=== PATIENT | male | born 1970 | race African-American/Black ===

== ENCOUNTER 2017-12-04 20:18 | Emergency (ER) | payer OTHER ==
[~2017-12-04] VITALS: Ht 165.1 cm; Wt 63.7 kg
--- NOTE | ~2017-12-04 | EKG ---
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 : 1970 Requested By: Dinora Granados Order Number: [id number] MD: Sanjeev Marinelli Measurements Intervals [place] Rate: 78 P: 9 LA: 198 QRS: -54 QRSD: 113 T: 94 QT: 413 QTc: 471 Interpretive Statements Sinus rhythm Probable left atrial enlargement Left anterior fascicular block LVH with secondary repolarization abnormality Probable lateral infarct, age indeterminate Compared to ECG 11/25/2017 05:26:49 Electronically Signed On 12-08-2017 17:05:47 CDT by Sanjeev Marinelli [email or web address] <ELECTRONICALLY SIGNED> By: Sanjeev Marinelli MD 12/08/17 1705 43 43 Sanjeev Marinelli MD /EPI
[~2017-12-04 20:18] MED LIST: AMLODIPINE BESY10 MG PO; ATORVASTATIN CA40 MG PO; AUGMENTIN 875-1 EACH PO; CHILDREN'S ASPI81 M1 PO; CLONIDINE0.1 PO; COREG3.125 MG PO; IMDUR 30 MG TAB30 M1 PO; LASIX 40 MG TAB40 M2 PO; LISINOPRIL10 MG PO; MINOXIDIL10 MG PO; MIRALAX17 GM PO; PERCOCET 10-321 EACH PO
[2017-12-04 21:36] LABS: ABSOLUTE NEUTROPHILS 3.3 thou/uL (1.4-8.2); EOSINOPHILS 1.4 % (0.0-3.0); HEMATOCRIT 31.2 % (42.0-52.0); HEMOGLOBIN 10.2 gm/dL (14.0-18.0); LYMPHOCYTES 11.6 % (24.0-44.0); MCH 30.6 pg (26.0-34.0); MCHC 32.8 g/dL (28.0-37.0); MCV 93.4 fL (80.0-100.0); MONOCYTES 6.9 % (1.0-8.0); PLATELET COUNT 199 thou/uL (150-400); POLYS 79.1 % (36.0-66.0); RBC 3.34 mil/uL (4.50-6.00); RDW 16.8 % (10.5-14.5); WBC 4.2 thou/uL (4.0-11.0)
[2017-12-04 21:46] LABS: CALCIUM 9.9 mg/dL (8.5-10.1); CREATININE 8.8 mg/dL (0.7-1.3); POTASSIUM 4.2 mmol/L (3.5-5.1)
[2017-12-04 21:54] LABS: ALBUMIN 3.3 g/dL (3.4-5.0); TOTAL PROTEIN 7.5 g/dL (6.4-8.2); TROPONIN-I 0.19 ng/mL (<0.06)
[2017-12-05] MEDS ORDERED: MIRALAX17 GM PO (00:46)
[2017-12-05] MEDS ORDERED: FLEET ENEMA EX230 ML RECTAL (00:48)
[2017-12-05] MEDS ORDERED: COLACE 100 MG100 MG PO (00:48)
== END 2017-12-05 01:29 | disposition home or self-care (01) ==
LOC: ER 20:18
PROVIDERS: Physician Assistant
DX: I13.2 Hypertensive heart and chronic kidney disease with heart failure and with stage 5 chronic kidney disease, or end stage renal disease (principal); I50.9 Heart failure, unspecified; N18.6 End stage renal disease; K59.00 Constipation, unspecified; R14.0 Abdominal distension (gaseous); Z99.2 Dependence on renal dialysis; F17.210 Nicotine dependence, cigarettes, uncomplicated; E78.5 Hyperlipidemia, unspecified

== ENCOUNTER 2017-12-12 11:49 | Inpatient (IN) | payer OTHER ==
[~2017-12-12] VITALS: Ht 162.6 cm; Wt 66.2 kg
--- NOTE | ~2017-12-12 | EKG ---
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 : 1970 Requested By: Armin Jimenez Order Number: [id number] MD: Sanjeev Marinelli Measurements Intervals [place] Rate: 73 P: 0 MO: 239 QRS: -50 QRSD: 117 T: 75 QT: 463 QTc: 511 Interpretive Statements Sinus rhythm Prolonged MO interval LAD, consider left anterior fascicular block Low voltage, extremity leads Nonspecific T abnrm, anterolateral leads Lead(s) aVR were not used for morphology analysis Compared to ECG 12/04/2017 20:44:37 First degree AV block now present Low QRS voltage now present Left ventricular hypertrophy no longer present Early repolarization no longer present Myocardial infarct finding no longer present Electronically Signed On 12-12-2017 23:08:59 CDT by Sanjeev Marinelli [email or web address] <ELECTRONICALLY SIGNED> By: Sanjeev Marinelli MD 12/12/17 2308 1142 1142 Sanjeev Marinelli MD /EPI
--- NOTE | ~2017-12-12 | HC ---
[facility] [address] CONSULTATION Name: YOLANDE LEDBETTER Room #: 357-P [facility] IN M.R.#: [id number] Admission: 12/12/17 Attend Phys: Bret Lott MD Discharge: 12/14/17 Date of : 74 Report #: [id number] THIS REPORT FOR: //name// CC: Bret Paredes REASON FOR CONSULTATION: End-stage renal disease. REASON FOR PRESENTATION: Mental status changes. HISTORY OF PRESENT ILLNESS: A well-known patient to me. He has an advanced cardiomyopathy with an ejection fraction of around 20%. He dialyzes with another group. He was brought by his family because of altered mental status per the family. The patient is not able to elaborate more; however, he described that he was feeling drowsy. He also felt somewhat weak. Because of the symptoms his family called 911. He missed his dialysis. I am being consulted to manage his end-stage renal disease and he had issues with hyperkalemia on his presentation. PAST MEDICAL HISTORY: 1. Terminal cardiomyopathy. 2. End-stage renal disease. 3. Hypertension. 4. Left AV fistula. 5. Recurrent admission for pulmonary edema. 6. Hyperlipidemia. 7. Cardiomyopathy. SOCIAL HISTORY: Lives with his family. Denies alcohol abuse. REVIEW OF SYSTEMS: GENERAL: No fever or chills. CARDIOVASCULAR: As per the history of present illness. PULMONARY: No cough or hemoptysis. NEUROLOGICAL: Weakness, dizziness, headache. GASTROINTESTINAL: No nausea or vomiting. GENITOURINARY: Little urine. MUSCULOSKELETAL: No back pain, no morning stiffness. FAMILY HISTORY: Significant for hypertension. MEDICATIONS: 1. Atorvastatin. 2. Carvedilol. 3. Lisinopril. 4. Aspirin. [facility] [address] [place] [address] CONSULTATION Name: YOLANDE LEDBETTER Room #: 357-P [facility] IN ..#: [id number] Admission: 12/12/17 Attend Phys: Bret Lott MD Discharge: 12/14/17 Date of : 74 Report #: [id number] PHYSICAL EXAMINATION: GENERAL: Alert, oriented. VITAL SIGNS: Blood pressure is 127/96, temperature 36.4, pulse rate 73. HEAD AND NECK: Elevated jugular venous pressure. CHEST: Bilateral crackles. CARDIOVASCULAR: S3 gallop. ABDOMEN: Soft, nontender. LOWER EXTREMITIES: Amputee on the left side. LABORATORY DATA: Reviewed. Hemoglobin 11.3. Sodium 133, potassium 6.1, chloride 97, BUN 75, creatinine 10.6. ASSESSMENT, IMPRESSION AND PLAN: 1. End-stage renal disease. 2. Hyperkalemia. 3. Terminal cardiomyopathy. 4. Noncompliance with medical treatment. 5. The patient received an emergent treatment yesterday. We will arrange for the patient to have another treatment today. 6. Continue with his heart failure medication. 7. Mental status seems to be back to his baseline. 8. Okay to discharge home tomorrow. <ELECTRONICALLY SIGNED> By: Christina Gann MD 12/27/17 0557 0845 1159 Christina Gann MD /nt
[~2017-12-12 11:49] MED LIST changes: +COLACE 100 MG100 MG PO; +FLEET ENEMA EX230 ML RECTAL
[2017-12-12 11:51] VITALS: BP 122/87
[2017-12-12 12:12] LABS: URINE BLOOD 3+ (Negative); URINE CLARITY CLOUDY; URINE COLOR RED; URINE GLUCOSE-RANDOM* NEGATIVE (Negative); URINE KETONES TRACE (Negative); URINE PROTEIN (DIPSTICK) 3+ (Negative)
[2017-12-12 12:21] LABS: ICTOTEST (BILI CONFIRMATORY) Negative (Negative); URINE BILIRUBIN NEGATIVE (Negative); URINE LEUKOCYTES-REFLEX 3+ (Negative); URINE NITRITE-REFLEX POSITIVE (Negative)
[2017-12-12 12:35] LABS: BACTERIA-REFLEX 1-9 Few /HPF (None Seen); CASTS None Seen /LPF (None Seen); CRYSTALS None Seen /LPF (None Seen); SQUAMOUS None Seen /LPF (0-3); URINE RBC >20 Many /HPF (0-2)
[2017-12-12 13:33] LABS: HEMATOCRIT 38.1 % (42.0-52.0); HEMOGLOBIN 12.8 gm/dL (14.0-18.0); MCH 30.9 pg (26.0-34.0); MCHC 33.6 g/dL (28.0-37.0); PLATELET COUNT 177 thou/uL (150-400); RBC 4.14 mil/uL (4.50-6.00); RDW 17.6 % (10.5-14.5); WBC 4.3 thou/uL (4.0-11.0)
[2017-12-12 13:42] LABS: CALCIUM 9.9 mg/dL (8.5-10.1); CREATININE 10.6 mg/dL (0.7-1.3)
[2017-12-12 13:51] LABS: TROPONIN-I 0.09 ng/mL (<0.06)
[2017-12-12 13:53] LABS: POTASSIUM 6.1 mmol/L (3.5-5.1)
[2017-12-12 13:59] LABS: ABSOLUTE NEUTROPHILS 2.6 thou/uL (1.4-8.2); PLATELET ESTIMATE NORMAL
[2017-12-12 16:02] VITALS: BP 122/87
[2017-12-12 16:25] VITALS: BP 122/87
[2017-12-12 16:36] LABS: AMP/METHAMP Negative (Negative); BARBITURATES Negative (Negative); BENZODIAZEPINES Negative (Negative); COCAINE Negative (Negative); METHADONE Negative (Negative); OPIATES Negative (Negative); PCP Negative (Negative)
[2017-12-12 17:24] VITALS: BP 136/93
[2017-12-12 19:50] VITALS: BP 140/88
[2017-12-13 00:15] VITALS: BP 131/90
[2017-12-13 05:00] VITALS: BP 139/98
[2017-12-13 05:30] VITALS: BP 127/96
[2017-12-13 06:06] LABS: HEMATOCRIT 33.4 % (42.0-52.0); HEMOGLOBIN 11.3 gm/dL (14.0-18.0); MCH 30.8 pg (26.0-34.0); MCHC 33.8 g/dL (28.0-37.0); MCV 91.1 fL (80.0-100.0); RBC 3.66 mil/uL (4.50-6.00); RDW 17.2 % (10.5-14.5); WBC 3.6 thou/uL (4.0-11.0)
[2017-12-13 08:15] VITALS: BP 140/97
[2017-12-13 16:39] VITALS: BP 127/82
[2017-12-13 19:02] VITALS: BP 127/85
[2017-12-13 23:01] LABS: CALCIUM 9.1 mg/dL (8.5-10.1); MAGNESIUM 2.2 mg/dL (1.8-2.4); POTASSIUM 3.6 mmol/L (3.5-5.1)
[2017-12-13 23:02] LABS: CREATININE 4.9 mg/dL (0.7-1.3)
[2017-12-14 03:37] VITALS: BP 150/91
[2017-12-14 07:38] VITALS: BP 141/86
[2017-12-14] MEDS ORDERED: KEFLEX500 M1 PO (08:53)
[2017-12-14 09:15] VITALS: BP 141/86
== END 2017-12-14 10:23 | disposition home or self-care (01) | DRG 871 ==
LOC: ER 11:49 → EROBS 14:43 → 3W 14:43
PROVIDERS: Hospitalist; Nurse Practitioner Acute Care; Physician Assistant
PROC: 5A1D70Z Performance of Urinary Filtration, Intermittent, Less than 6 Hours Per Day (ICD-10-PCS; principal; 2017-12-13)
DX: A41.9 Sepsis, unspecified organism (principal); N18.6 End stage renal disease; N39.0 Urinary tract infection, site not specified; I42.8 Other cardiomyopathies; I13.2 Hypertensive heart and chronic kidney disease with heart failure and with stage 5 chronic kidney disease, or end stage renal disease; E87.70 Fluid overload, unspecified; E87.5 Hyperkalemia; F17.210 Nicotine dependence, cigarettes, uncomplicated; E78.5 Hyperlipidemia, unspecified; I50.9 Heart failure, unspecified; I73.9 Peripheral vascular disease, unspecified; E87.6 Hypokalemia; I16.0 Hypertensive urgency; Z82.49 Family history of ischemic heart disease and other diseases of the circulatory system; Z91.14 Patient's other noncompliance with medication regimen; Z79.899 Other long term (current) drug therapy
CPT/HCPCS: 10879; 32100

== ENCOUNTER 2017-12-23 20:45 | Inpatient (IN) | payer OTHER ==
[~2017-12-23] VITALS: Ht 165.1 cm; Wt 67.6 kg
--- NOTE | ~2017-12-23 | HC ---
[facility] [place] [address] CONSULTATION Name: YOLANDE LEDBETTER Room #: 212-P ADM IN M.R.#: [id number] Admission: 12/23/17 Attend Phys: Bret Lott MD Discharge: Date of : 74 Report #: [id number] THIS REPORT FOR: //name// CC: Bret Paredes DATE OF SERVICE: 12/24/2017 REASON FOR CONSULTATION: End-stage renal disease and congestive heart failure. HISTORY OF PRESENT ILLNESS: The patient is well known to our service from multiple recent admissions to this hospital. He is a chronic dialysis patient over the last 7 years, who also has cardiomyopathy with a low ejection fraction and recurrent bouts of congestive heart failure. He is admitted with shortness of breath and right-sided abdominal pain. Today would be his usual dialysis day. He recently changed from 2 times a week to 3 times a week dialysis treatments. PAST MEDICAL HISTORY: He has end-stage renal disease as mentioned for several years, had been seen previously by our service in this hospital over the last several months. He has severe cardiomyopathy, otherwise he is a poor historian. 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 CURRENT MEDICATIONS: As reflected in his recent discharge summary from this hospital included clonidine 0.1 mg b.i.d., amlodipine 10 mg daily, Lipitor 40 mg daily, lisinopril 20 mg daily, aspirin 81 mg daily, Imdur 30 mg daily, carvedilol 3.125 mg b.i.d., Lasix 40 mg daily and he was unfortunately also prescribed Fleet's enema as needed. SOCIAL HISTORY: Lives at home with his family. Denies cigarettes or alcohol, apparently does have a history of prior drug use and abuse including cocaine. REVIEW OF SYSTEMS: Difficult to take as the patient is falling asleep as I am trying to interview him, but he is complaining of right-sided abdominal pain, some degree of shortness of breath and orthopnea. PHYSICAL EXAMINATION: GENERAL: This is a chronically ill-appearing gentleman looking older than his stated age. SKIN: Unremarkable. SKELETAL: Left forefoot amputation, right arm fistula. HEENT: Extraocular movements are full. Vision appears to be intact. Hearing appears to be intact. Mucous membranes moist. NECK: Supple. Neck veins do not appear to be distended. CHEST: Shows crackles at the lung bases and some rhonchi. [facility] [address] [place] [address] CONSULTATION Name: YOLANDE LEDBETTER Room #: 212-P [facility] IN .R.#: [id number] Admission: 12/23/17 Attend Phys: Bret Lott MD Discharge: Date of : 74 Report #: [id number] HEART: Regular, somewhat tachycardic. ABDOMEN: Somewhat tender in the right upper quadrant. EXTREMITIES: Show no peripheral edema. LABORATORY DATA: Hemoglobin is 12. Sodium 138, potassium 3.7, chloride 98, bicarbonate 33, creatinine 6.6, BUN 23. Chest x-ray indicative of congestive heart failure. ASSESSMENT AND PLAN: 1. End-stage renal disease in need of his usual dialysis treatment. Today is his dialysis day #2. 2. Congestive heart failure, he is fluid overloaded. 3. Right upper quadrant pain, likely due to congestive hepatopathy. 4. Hypertension. 5. Severe cardiomyopathy. 6. Cognitive impairment, which I believe is chronic. DICTATION ENDS HERE. By: 1012 1552 Tito Quinones MD /nt
--- NOTE | ~2017-12-23 | EKG ---
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 : 1970 Requested By: Elsie Koenig Order Number: [id number] MD: Александр Ochoa Measurements Intervals [place] Rate: 89 P: 57 NE: 199 QRS: -52 QRSD: 118 T: 109 QT: 408 QTc: 497 Interpretive Statements Sinus rhythm Ventricular premature complex LAD, consider left anterior fascicular block LVH with secondary repolarization abnormality Compared to ECG 12/12/2017 11:42:15 Ventricular premature complex(es) now present Electronically Signed On 12-24-2017 7:30:54 CDT by Александр Ochoa [email or web address] <ELECTRONICALLY SIGNED> By: Александр Ochoa MD, FAC 12/24/17 0730 06 06 Александр Ochoa MD, [facility] /EPI
--- NOTE | ~2017-12-23 | EKG ---
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 : 1970 Requested By: Bret Lott Order Number: [id number] MD: Александр Ochoa Measurements Intervals [place] Rate: 103 P: 45 [place]: 186 QRS: -85 QRSD: 113 T: 79 QT: 360 QTc: 471 Interpretive Statements Sinus tachycardia Probable left atrial enlargement LAD, consider left anterior fascicular block LVH with secondary repolarization abnormality Probable lateral infarct, age indeterminate Compared to ECG 12/23/2017 21:07:54 Ventricular premature complex(es) no longer present Electronically Signed On 12-25-2017 8:42:49 CDT by Александр Ochoa [email or web address] <ELECTRONICALLY SIGNED> By: Александр Ochoa MD, FACC 12/25/17 0842 182 1824 Александр Ochoa MD, FAC /EPI
[~2017-12-23 20:45] MED LIST changes: +KEFLEX500 M1 PO
[2017-12-23 20:50] VITALS: BP 150/106
[2017-12-23 21:21] LABS: ABSOLUTE NEUTROPHILS 1.8 thou/uL (1.4-8.2); BASOPHILS 2.1 % (0.0-2.0); HEMATOCRIT 34.8 % (42.0-52.0); HEMOGLOBIN 11.5 gm/dL (14.0-18.0); LYMPHOCYTES 28.7 % (24.0-44.0); MCH 30.5 pg (26.0-34.0); MCV 92.6 fL (80.0-100.0); MONOCYTES 7.3 % (1.0-8.0); PLATELET COUNT 169 thou/uL (150-400); POLYS 59.9 % (36.0-66.0); RBC 3.76 mil/uL (4.50-6.00); RDW 17.4 % (10.5-14.5)
[2017-12-23 21:29] LABS: CALCIUM 10.8 mg/dL (8.5-10.1); CREATININE 6.4 mg/dL (0.7-1.3); POTASSIUM 3.4 mmol/L (3.5-5.1)
[2017-12-23 21:37] LABS: ALBUMIN 3.3 g/dL (3.4-5.0); TOTAL BILIRUBIN 1.6 mg/dL (<0.1-1.0); TOTAL PROTEIN 7.9 g/dL (6.4-8.2); TROPONIN-I 0.09 ng/mL (<0.06)
[2017-12-23 22:20] LABS: URINE BILIRUBIN NEGATIVE (Negative); URINE BLOOD TRACE (Negative); URINE CLARITY CLEAR; URINE COLOR YELLOW; URINE GLUCOSE-RANDOM* NEGATIVE (Negative); URINE KETONES NEGATIVE (Negative); URINE LEUKOCYTES-REFLEX NEGATIVE (Negative); URINE NITRITE-REFLEX NEGATIVE (Negative); URINE PROTEIN (DIPSTICK) 2+ (Negative); URINE SPECIFIC GRAVITY 1.015 (1.005-1.035)
[2017-12-23 22:33] LABS: CASTS None Seen /LPF (None Seen); CRYSTALS None Seen /LPF (None Seen); SQUAMOUS None Seen /LPF (0-3)
[2017-12-23 22:34] LABS: BACTERIA-REFLEX 1-9 Few /HPF (None Seen); URINE RBC 0-2 Rare /HPF (0-2); URINE WBC-REFLEX None Seen /HPF (0-5)
[2017-12-23 22:59] VITALS: BP 151/106
[2017-12-24] VITALS (14 sets, daily range): BP systolic 113–157; BP diastolic 74–115
[2017-12-24 03:52] LABS: HEMATOCRIT 36.5 % (42.0-52.0); MCH 30.2 pg (26.0-34.0); MCHC 32.9 g/dL (28.0-37.0); MCV 91.9 fL (80.0-100.0); RBC 3.97 mil/uL (4.50-6.00); RDW 17.7 % (10.5-14.5); WBC 3.3 thou/uL (4.0-11.0)
[2017-12-24 04:04] LABS: CALCIUM 10.7 mg/dL (8.5-10.1); CREATININE 6.6 mg/dL (0.7-1.3); POTASSIUM 3.7 mmol/L (3.5-5.1)
[2017-12-24 14:51] LABS: AMP/METHAMP Negative (Negative); BARBITURATES Negative (Negative); BENZODIAZEPINES Negative (Negative); COCAINE Negative (Negative); METHADONE Negative (Negative); OPIATES POSITIVE (Negative); PCP Negative (Negative)
[2017-12-24 18:39] LABS: BE(vivo) 6.9 mmol/L (-2 to +3); HCO3 31.2 mmol/L (22.0-26.0); PCO2 43.3 mmHg (35.0-45.0); PO2 159.2 mmHg (80.0-100.0); pH 7.476 (7.360-7.450); sO2 99.1 % (92.0-98.0)
[2017-12-25] VITALS (25 sets, daily range): BP systolic 100–131; BP diastolic 60–89
[2017-12-25 03:49] LABS: ALBUMIN 2.8 g/dL (3.4-5.0); CALCIUM 9.2 mg/dL (8.5-10.1); PHOSPHORUS 4.6 mg/dL (2.5-4.9); POTASSIUM 4.1 mmol/L (3.5-5.1)
[2017-12-25 03:50] LABS: CREATININE 5.6 mg/dL (0.7-1.3)
[2017-12-25] MEDS ORDERED: PHOSLO667 MG PO (17:06)
[2017-12-26 04:54] LABS: ABSOLUTE NEUTROPHILS 2.9 thou/uL (1.4-8.2); BASOPHILS 0.9 % (0.0-2.0); EOSINOPHILS 1.2 % (0.0-3.0); HEMATOCRIT 32.2 % (42.0-52.0); HEMOGLOBIN 10.2 gm/dL (14.0-18.0); LYMPHOCYTES 17.4 % (24.0-44.0); MCH 29.2 pg (26.0-34.0); MCHC 31.8 g/dL (28.0-37.0); MCV 91.7 fL (80.0-100.0); MONOCYTES 7.1 % (1.0-8.0); POLYS 73.4 % (36.0-66.0); RBC 3.51 mil/uL (4.50-6.00); RDW 17.2 % (10.5-14.5); WBC 3.9 thou/uL (4.0-11.0)
[2017-12-26 05:05] VITALS: BP 114/77
[2017-12-26 05:12] LABS: ALBUMIN 2.6 g/dL (3.4-5.0); CREATININE 7.3 mg/dL (0.7-1.3); PHOSPHORUS 4.9 mg/dL (2.5-4.9); POTASSIUM 4.4 mmol/L (3.5-5.1)
[2017-12-26 05:32] LABS: PLATELET COUNT 96 thou/uL (150-400)
[2017-12-26 07:23] VITALS: BP 107/70
[2017-12-26 11:19] VITALS: BP 117/77
[2017-12-26 15:31] VITALS: BP 117/77
[2017-12-26 15:40] VITALS: BP 131/85
== END 2017-12-26 18:11 | disposition home or self-care (01) | DRG 291 ==
LOC: ER 20:45 → 2N 22:46 → EROBS 22:46 → 2N 23:39 → ICU 12-24 19:43 → 2N 12-25 16:04 → ENTRNSPT 12-26 18:06 → 2N 12-26 18:11
PROVIDERS: Hospitalist; Internal Medicine Nephrology; Nurse Practitioner Family; Nurse Practitioner Gerontology; Physician Assistant
DX: I13.2 Hypertensive heart and chronic kidney disease with heart failure and with stage 5 chronic kidney disease, or end stage renal disease (principal); N18.6 End stage renal disease; J96.01 Acute respiratory failure with hypoxia; I50.43 Acute on chronic combined systolic (congestive) and diastolic (congestive) heart failure; I42.9 Cardiomyopathy, unspecified; J44.9 Chronic obstructive pulmonary disease, unspecified; F17.210 Nicotine dependence, cigarettes, uncomplicated; E87.70 Fluid overload, unspecified; G31.84 Mild cognitive impairment of uncertain or unknown etiology; I73.9 Peripheral vascular disease, unspecified; I27.20 Pulmonary hypertension, unspecified; E78.5 Hyperlipidemia, unspecified; I05.9 Rheumatic mitral valve disease, unspecified; I07.1 Rheumatic tricuspid insufficiency; F14.10 Cocaine abuse, uncomplicated; K59.00 Constipation, unspecified; Z89.432 Acquired absence of left foot; Z91.14 Patient's other noncompliance with medication regimen; Z79.899 Other long term (current) drug therapy
CPT/HCPCS: 10078; 10081; 32100

== ENCOUNTER → 2018-02-17 | Outpatient (CLI) | payer OTHER ==
[~2018-02-17] MED LIST changes: +CARVEDILOL12.5 MG PO; +COLACE100 MG PO; +HYDROXYZINE HCL25 M1 PO; +PHOSLO667 MG PO
== END ==
LOC: ULTRA 07:40
DX: N26.1 Atrophy of kidney (terminal) (principal); K76.9 Liver disease, unspecified; R18.8 Other ascites

== ENCOUNTER → 2018-02-19 | Outpatient (CLI) | payer OTHER ==
[~2018-02-19] VITALS: Ht 165.1 cm; Wt 64.0 kg
--- NOTE | ~2018-02-19 | P ---
[facility] [place] [address] PROCEDURE REPORT Name: YOLANDE LEDBETTER Room #: REG [facility]#: [id number] Admission: 02/19/18 Attend Phys: Moise Lantigua MD Discharge: Date of : 74 Report #: [id number] THIS REPORT FOR: //name// CC: Rogelio Fowler MD DATE OF SERVICE: 02/19/2018 BRIEF HISTORY: The patient is a 47-year-old male with recent change in bowel habits. He also has had occasional blood seen on his stools, rectal bleeding. PREOPERATIVE DIAGNOSES: Change in bowel habits, rectal bleeding. POSTOPERATIVE DIAGNOSES: 1. Diminutive proximal ascending colon polyp. 2. Mild diverticulosis coli, primarily sigmoid colon. MEDICATIONS: Deep sedation with propofol per Anesthesia. SPECIMEN: Cecal polyp. ESTIMATED BLOOD LOSS: 3 mL. PROCEDURE: Colonoscopy to cecum and ileocecal valve with biopsy. FINDINGS: Prior to propofol sedation, procedure of colonoscopy discussed with the patient as well as potential risks and its complications. He indicates he understands and desires to proceed. DESCRIPTION OF PROCEDURE: With the patient in left lateral decubitus position, digital examination was completed, which revealed no abnormalities. Subsequently, the Olympus video colonoscope was introduced in the rectum and advanced under direct vision to the cecum. Done with minimal difficulty. The cecum was identified by the ileocecal valve and the appendiceal orifice. I was able to visualize the distal segment of the terminal ileum, which was inspected and noted to be unremarkable. At that point, the scope was slowly withdrawn and careful circumferential views obtained including retroflexion of the scope in the ascending colon. Upon slow withdrawal of the scope, the prep was noted to be good. The mucosa was within normal limits, normal vascular pattern, normal light reflex. As we withdrew the scope, a diminutive polyp was seen and removed by biopsy from the proximal ascending colon. Otherwise, no neoplastic lesions were seen during this examination. An occasional diverticulum was noted upon slow withdrawal of the scope. There was no endoscopic evidence of [facility] [address] [place] [address] PROCEDURE REPORT Name: ANATOLYYOLANDE K Room #: REG [facility]#: [id number] Admission: 02/19/18 Attend Phys: Moise Lantigua MD Discharge: Date of : 74 Report #: [id number] diverticulitis. Scope was withdrawn in the rectum. No abnormalities were seen. Upon retroflexion, no abnormalities were noted. The scope was withdrawn. The patient tolerated the procedure well. CONDITION OF THE PATIENT UPON DISCHARGE: Following the procedure, the patient drowsy, arousable and conversant and will be discharged home when fully ambulatory. INSTRUCTIONS TO THE PATIENT AND FAMILY AT THE TIME OF DISCHARGE: One small polyp identified and removed as described above. We will follow up on the pathology and make further recommendations. If it is adenomatous, he will return for colonoscopy in 5 years; if not adenomatous in 10 years. The patient has had change in bowel habits, increasing problems with constipation. He was given Linzess samples in the office and notes that he now has diarrhea. We will reduce his dose from 145 to 72 mcg daily and then have him return for followup in the office. Withdrawal time from cecum was 17 minutes 46 seconds. <ELECTRONICALLY SIGNED> By: Moise Lantigua MD 02/21/18 1030 1019 1034 Moise Lantigua MD /nt
--- NOTE | ~2018-02-19 | PATH ---
[facility] [address] [place] [address] PATHOLOGY RPT PROCEDURE Name: TYSON LEDBETTER Room #: REG COREY Jihan.#: [id number] Admission: 02/19/18 Date of : 74 Discharge: Report #: [id number] Path Case #: [id number] [facility] Accession Number: [id number] . 01 Material submitted: . PART A: BX OF GASTRITIS R/O H. PYLORI PART B: POLYP AT PROXIMAL ASCENDING COLON . 01 Clinical history: . Pre-OP DX: Change in bowel habits, dyspepsia, dysphagia Post-OP DX: Gastritis, esophageal varices, colon polyp, diverticulosis . 02 Diagnosis: A. Gastric mucosa, gastritis R/O H. pylori, endoscopic biopsy: - Mild reactive gastropathy. - Negative for intestinal metaplasia or atrophy. - Negative for Helicobacter pylori (properly controlled immunohistochemical stain performed). . B. Polyp, proximal ascending colon, endoscopic biopsy: - Tubular adenoma. - Negative for high-grade dysplasia. (IUV:nayely; 02/20/2018) QMS/02/20/2018 . 02 Electronically signed: . Edna Ponce MD, Pathologist NPI- [id number] . 01 Gross description: . A. Received in formalin labeled "Tyson Ledbetter, BX of gastritis," are 5 segments of haro soft tissue measuring 1.5 x 0.9 x 0.3 cm in aggregate dimensions and ranging from 0.3 to 0.7 cm in maximum dimension. The specimen is submitted entirely in cassette A1. . B. Received in formalin labeled "Tyson Ledbetter, polyp at proximal ascending colon," are 5 segments of haro soft tissue measuring 1.4 x 0.6 x 0.2 cm in aggregate dimensions and ranging from 0.3 to 0.4 cm in maximum dimension. The specimen is submitted entirely in cassette B1. (TSD; 02/19/2018) TOB/TOB . 02 Pathologist provided ICD-10: K31.9, D12.2 . 02 CPT . 971322, 640984, C98124 [place] [address] PATHOLOGY RPT PROCEDURE Name: RAVINDER LEDBETTERT Room #: REG CL Yolanda#: [id number] Admission: 02/19/18 Date of : 74 Discharge: Report #: [id number] Path Case #: [id number] Specimen Comment: A courtesy copy of this report has been sent to Specimen Comment: [phone], . Specimen Comment: Report sent to / DR STANTON Performed at: [address], [place] [id number] MD El Cruz MD Phone: [phone] Performed at: [address] [id number] MD Edna Ponce MD Phone: [phone]
--- NOTE | ~2018-02-19 | P ---
[facility] [place] [address] PROCEDURE REPORT Name: YOLANDE LEDBETTER Room #: REG [facility]#: [id number] Admission: 02/19/18 Attend Phys: Moise Lantigua MD Discharge: Date of : 74 Report #: [id number] THIS REPORT FOR: //name// CC: DR TREVIN Lantigua BRIEF HISTORY: The patient is a 47-year-old male who is seen in the office recently. He has heart disease, chronic kidney disease, pulmonary hypertension and also he has had abdominal pain, reflux type symptoms and intermittent solid food dysphagia. POSTOPERATIVE DIAGNOSES: 1. Grade 1, early esophageal varix. 2. Diffuse gastritis. 3. Dysphagia. MEDICATIONS: Deep sedation with propofol per Anesthesia. SPECIMEN: Biopsies of gastritis. ESTIMATED BLOOD LOSS: 3 mL. PROCEDURE: EGD with biopsy and Parikh dilation. FINDINGS: Prior to propofol sedation, procedure of upper endoscopy was reviewed with the patient as well as potential risks and its complications. He indicates he understands and desires to proceed. DESCRIPTION OF PROCEDURE: With the patient in left lateral decubitus position, the Olympus video endoscope was inserted in the cervical esophagus under direct vision without difficulty. Examination of this organ to its entire length revealed normal esophageal mucosa in the proximal esophagus. As the scope was advanced distally, the mucosa was intact and normal without evidence of ulcers, erosions or esophagitis. However, in the distal esophagus, he did have one very early no more than grade 1 esophageal varix. It was barely distinguishable from the surrounding mucosa. There was no stigmata of bleeding. The squamocolumnar junction was unremarkable. He may have a small 1-2 cm sliding hiatus hernia, but a large hernia was not seen. As far as her dysphagia, I did not see any evidence of strictures or mass lesions. Scope was advanced in the stomach, was examined on end view as well as retroflexed views. He had a pattern of diffuse gastritis with scattered erosions in the antrum. No ulcers were seen. No bleeding lesions were seen. There was a diffuse gastritis throughout. Upon retroflexion, no mass lesions were seen in the cardia. In addition, with his bloating and fullness symptoms, I did not see retained solids or liquids in the stomach. Biopsies obtained of the gastritis. The pylorus and duodenal bulb [address] [address] PROCEDURE REPORT Name: YOLANDE LEDBETTER Room #: REG CORE[facility] Guerrero#: [id number] Admission: 02/19/18 Attend Phys: Moise Lantigua MD Discharge: Date of : 74 Report #: [id number] were inspected and noted to be unremarkable. At that point, the scope was slowly withdrawn and careful circumferential views confirmed the above findings. The patient tolerated the procedure well. Following the procedure, he was dilated with passage of 50-Kiswahili Parikh dilator due to symptoms of dysphagia, although the specific lesion was not seen. After dilation, the endoscope was reinserted and no mucosal injuries were seen related to the dilation. CONDITION OF THE PATIENT UPON DISCHARGE: Following procedure, the patient was drowsy. He was then prepared for colonoscopy. . INSTRUCTIONS TO THE PATIENT AND FAMILY AT THE TIME OF DISCHARGE: We will have him start PPI such as omeprazole 20 mg daily. If he has resolved with the dilation, he can return for dilation on an as needed basis as long as he does not have large varices. We will have him return to see me in followup in the office. Consider gastric emptying study if symptoms persist. Proceed with colonoscopy at this time. <ELECTRONICALLY SIGNED> By: Moise Lantigua MD 02/21/18 1030 0944 1041 Moise Lantigua MD /nt
== END | disposition home or self-care (01) ==
LOC: GI 06:58
DX: D12.2 Benign neoplasm of ascending colon (principal); K57.30 Diverticulosis of large intestine without perforation or abscess without bleeding; K31.9 Disease of stomach and duodenum, unspecified; K29.70 Gastritis, unspecified, without bleeding; I85.00 Esophageal varices without bleeding; K21.9 Gastro-esophageal reflux disease without esophagitis; I13.0 Hypertensive heart and chronic kidney disease with heart failure and stage 1 through stage 4 chronic kidney disease, or unspecified chronic kidney disease; N18.6 End stage renal disease; I50.9 Heart failure, unspecified; D64.9 Anemia, unspecified; I42.9 Cardiomyopathy, unspecified; E78.00 Pure hypercholesterolemia, unspecified; J43.9 Emphysema, unspecified; R14.0 Abdominal distension (gaseous); Z79.899 Other long term (current) drug therapy; Z99.2 Dependence on renal dialysis; Z87.891 Personal history of nicotine dependence; Z79.82 Long term (current) use of aspirin; Z98.890 Other specified postprocedural states
CPT/HCPCS: 62110; 62900

== ENCOUNTER → 2018-07-15 | Outpatient (CLI) | payer OTHER ==
--- NOTE | 2018-07-15 13:36 | 2DMMODE ---
[facility] [address] [place] [address] 2 D/M-MODE ECHOCARDIOGRAM Name: YOLANDE LEDBETTER Room #: REG CL [facility]#: [id number] ������������� Admission: 07/15/18 ������������� Attend Phys: Rogelio Espinoza Discharge: ��� ������������� ��� Date of : 74 Date of Service: 07/15/18 1336 �� Report #: [id number] �������� ��������������������������������������������[id number] THIS REPORT FOR: //name// APPROVED REPORT Study performed: 07/15/2018 13:07:14 EXAM: Limited 2D, Doppler, and color-flow Echocardiogram Patient Location: Out-Patient Status: routine BSA: 1.80 HR: 69 bpm BP: 130/82 mmHg Rhythm: NSR Other Information Study Quality: Good Indications Abbreviated echo for cardiomyopathy, LV function. (EF 20% in 11/2017) 2D Dimensions RVDd: 37.99 mm Volumes Left Atrial Volume (Systole) Single Plane 4CH: 50.61 mL Single Plane 2CH: 55.49 mL LA ESV Index: 32.00 mL/m2 Aortic Valve AoV Peak Josafat.: 1.59 m/s AO Peak Gr.: 10.08 mmHg Tricuspid Valve TR Peak Josafat.: 2.55 m/s RAP Estimate: 5.00 mmHg TR Peak Gr.: 26.05 mmHg PA Pressure: 29.00 mmHg Left Ventricle Left ventricle is grossly normal size. Moderate concentric left ventricular hypertrophy. Left ventricular systolic function is moderately decreased. LVEF is 35%. Right Ventricle [facility] [address] [place] [address] 2 D/M-MODE ECHOCARDIOGRAM Name: YOLANDE LEDBETTER [id number] ������������� Admission: 07/15/18 ������������� Attend Phys: Rogelio Espinoza Discharge: ��� ������������� ��� Date of : 74 Date of Service: 07/15/18 1336 �� Report #: [id number] �������� ��������������������������������������������[id number] The right ventricle is normal size. Right ventricle is mildly hypokinetic. Atria The left atrium size is normal. The right atrium size is normal. Aortic Valve Aortic valve is trileaflet. No aortic regurgitation is present. There is no aortic valvular stenosis. Mitral Valve The mitral valve is normal in structure. Trace mitral regurgitation. Tricuspid Valve The tricuspid valve is normal in structure. Trace to mild tricuspid regurgitation. Estimated PAP is 30mmHg. Great Vessels IVC is normal in size and collapses >50% with inspiration. Pericardium There is no pericardial effusion. <Conclusion> Left ventricle is grossly normal size. Moderate concentric left ventricular hypertrophy. LVEF is 35%. Aortic valve is trileaflet. The mitral valve is normal in structure. Trace mitral regurgitation. The tricuspid valve is normal in structure. Trace to mild tricuspid regurgitation. Estimated PAP is 30mmHg. There is no pericardial effusion. ��������������������������������������������� <ELECTRONICALLY SIGNED> ���������������������������������������� By: Rogelio Orourke MD ��������������������������������������������� 07/15/18 1336 35 Rogelio Orourke MD /INF
== END ==
LOC: CV 06:27
DX: I07.1 Rheumatic tricuspid insufficiency (principal); I42.9 Cardiomyopathy, unspecified

== ENCOUNTER 2018-10-12 00:03 | Inpatient (IN) | payer OTHER ==
[2018-10-12] VITALS (7 sets, daily range): BP systolic 112–195; BP diastolic 67–126
[~2018-10-12] VITALS: Ht 167.6 cm; Wt 65.8 kg
--- NOTE | ~2018-10-12 | HC ---
[facility] [place] [address] CONSULTATION Name: YOLANDE LEDBETTER Room #: 203-P ADM IN M.R.#: [id number] Admission: 10/12/18 ������������������ Attend Phys: Francesca Thompson Discharge: ������������������ Date of : 74 Report #: [id number] THIS REPORT FOR: //name// CC: Nolan Thompson DATE OF SERVICE: 10/12/2018 REASON FOR CONSULTATION: End-stage renal disease. REASON FOR PRESENTATION: Found down. HISTORY OF PRESENT ILLNESS: Unfortunately, the patient is having mental status issue and is not able to communicate with us. He has history of polysubstance abuse. He is positive for cocaine and PCP on his screen. He is known to have end-stage renal disease and maintained on hemodialysis in another facility with another group. He is also known to have advanced cardiomyopathy with noncompliance of medical care. He was brought by the EMS after he was found sitting in his yard alone by himself. Further details of the history are not available. His mental status issues had persisted ever since his presentation to the Emergency Room. A consult was placed for me to manage his dialysis. He was extremely hypertensive on his presentation. PAST MEDICAL HISTORY: 1. End-stage renal disease, maintained on hemodialysis. 2. Severe cardiomyopathy with an ejection fraction of around 30%. 3. Pulmonary hypertension. 4. Noncompliance. 5. Severe mitral regurgitation. 6. Severe tricuspid regurgitation. 7. Polysubstance abuse. 8. Status post left metatarsal amputation. 9. Right knee surgery. MEDICATIONS: Listed amongst his medications: 1. Clonidine. 2. Amlodipine. 3. Lisinopril. 4. Carvedilol. 5. Atorvastatin. ALLERGIES: None. SOCIAL HISTORY: Polysubstance abuse. REVIEW OF SYSTEMS: Unobtainable given the patient's mental status. [facility] [address] [place] [address] CONSULTATION Name: YOLANDE LEDBETTER Room #: 203-[facility].#: [id number] Admission: 10/12/18 ������������������ Attend Phys: Francesca Thompson Discharge: ������������������ Date of : 74 Report #: [id number] FAMILY HISTORY: Unobtainable given the patient's mental status. PHYSICAL EXAMINATION: GENERAL: He is confused, lethargic. VITAL SIGNS: Temperature 37.8, blood pressure 195/126, pulse rate 107, respiratory rate 20. HEAD AND NECK: Elevated jugular venous pressure. CHEST: Bilateral crackles. CARDIOVASCULAR: Systolic murmur present. ABDOMEN: Soft, nontender. EXTREMITIES: Lower extremities, left TMA. Upper extremities, right huge AV fistula. LABORATORY DATA: Reviewed. Sodium 141, BUN 69, creatinine is 10. Toxicology, as I have stated, positive for PCP and cocaine. Head CT with no acute abnormality. Chest x-ray with mild pulmonary congestion. ASSESSMENT, IMPRESSION AND PLAN: 1. Hypertensive urgency. 1. End-stage renal disease. 2. Pulmonary edema. 3. Polysubstance abuse. 4. Advanced cardiomyopathy. 5. We will arrange for the patient to have his usual hemodialysis every Friday, Friday and Friday. 6. Blood pressure control. 7. Cardiology following for his elevated troponin. 8. Extreme noncompliance was addressed with the patient on numerous times. 9. We will continue to follow along. ��������������������������������������������� ���������������������������������������� By: ��������������������������������������������� 0853 0149 Christina Gann MD /nt
[~2018-10-12 00:03] MED LIST changes: +LISINOPRIL20 MG PO; +NORVASC10 MG PO
[2018-10-12 01:13] LABS: URINE BILIRUBIN NEGATIVE (Negative); URINE BLOOD 1+ (Negative); URINE CLARITY CLEAR; URINE COLOR YELLOW; URINE GLUCOSE-RANDOM* NEGATIVE (Negative); URINE KETONES NEGATIVE (Negative); URINE LEUKOCYTES-REFLEX NEGATIVE (Negative); URINE NITRITE-REFLEX NEGATIVE (Negative); URINE PROTEIN (DIPSTICK) 3+ (Negative)
[2018-10-12 01:13] LABS: ABSOLUTE NEUTROPHILS 3.8 thou/uL (1.4-8.2); BASOPHILS 0.9 % (0.0-2.0); EOSINOPHILS 1.3 % (0.0-3.0); HEMATOCRIT 35.9 % (42.0-52.0); HEMOGLOBIN 12.1 gm/dL (14.0-18.0); LYMPHOCYTES 13.3 % (24.0-44.0); MCH 31.4 pg (26.0-34.0); MCHC 33.6 g/dL (28.0-37.0); MCV 93.6 fL (80.0-100.0); MONOCYTES 8.5 % (1.0-8.0); PLATELET COUNT 185 thou/uL (150-400); RBC 3.84 mil/uL (4.50-6.00); RDW 13.5 % (10.5-14.5)
[2018-10-12 01:19] LABS: AMP/METHAMP Negative (Negative); BARBITURATES Negative (Negative); BENZODIAZEPINES Negative (Negative); COCAINE POSITIVE (Negative); METHADONE Negative (Negative); OPIATES Negative (Negative); PCP POSITIVE (Negative)
[2018-10-12 01:19] LABS: CALCIUM 8.5 mg/dL (8.5-10.1); POTASSIUM 4.5 mmol/L (3.5-5.1)
[2018-10-12 01:26] LABS: BACTERIA-REFLEX None Seen /HPF (None Seen); CASTS None Seen /LPF (None Seen); CRYSTALS None Seen /LPF (None Seen); MUCUS None Seen strn/LPF (None Seen); SQUAMOUS None Seen /LPF (0-3); URINE RBC 0-2 Rare /HPF (0-2); URINE WBC-REFLEX None Seen /HPF (0-5)
[2018-10-12 01:28] LABS: TROPONIN-I 0.36 ng/mL (<0.06)
--- NOTE | 2018-10-12 09:25 | NUR ---
Pt becoming increasingly agitated at this time after moving from ER1 to ER17. Pt standing on bed, naked, pulling his IV out. Pt shouting at wait staff. Security notified. notified, RX orders given [Haldol 1mg q6h + Ativan 1mg q4h PRN]. Pt to be moved to ER15 to remain in direct line of sight of RN station.
--- NOTE | 2018-10-12 17:29 | NUR ---
Pt sleeping on dialysis at this time; unwilling to eat. Coreg held until pt awake.
--- NOTE | 2018-10-12 18:05 | NUR ---
PT BECAME EXCESSIVELY AGITATED AT THIS TIME, ATTEMPTING TO STAND ON BED WHILE UNDERGOING DIALYSIS. PRN RX GIVEN
--- NOTE | 2018-10-12 21:11 | NUR ---
1942 PT ARRIVED FROM ED, STABLE CONDITION, CURRENTLY SLEEPING. WILL ADMIT PT AND CARRY OUT ORDERS.
[2018-10-12] MEDS ORDERED: HYDROXYZINE HCL25 M1 PO (21:21)
[2018-10-12] MEDS ORDERED: LINZESS72 MCG PO (21:23)
[2018-10-12] MEDS ORDERED: RENAGEL800 MG PO (21:30)
[2018-10-12] MEDS ORDERED: TRAZODONE HCL50 MG PO (21:31)
[2018-10-12] MEDS ORDERED: OMEPRAZOLE20 M2 PO (21:31)
--- NOTE | 2018-10-12 22:07 | NUR ---
PT CURRENTLY UNABLE TO SIGN CONSENT REGARDING TELE INTERFERENCE D/T DROWSINESS BUT DISCUSSED IT WITH PT AND WILL HAVE HIM SIGN SOON HE WAKES UP MORE.
[2018-10-13 00:42] VITALS: BP 112/62
[2018-10-13 04:16] VITALS: BP 138/8
--- NOTE | 2018-10-13 05:26 | NUR ---
PT MORE ALERT AND ABLE TO ANSWER QUESTIONS APPROPRIATELY. PT REMAINS ON RA. SR ON MONITOR. PT ABLE TO SIGN CONSENT FOR TELEMETRY INTERFERENCE ACKNOWLEDGMENT.
--- NOTE | 2018-10-13 07:55 | EKG ---
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 ��������������������������������������������� <ELECTRONICALLY SIGNED> ���������������������������������������� By: Александр Ochoa MD, [facility] ��������������������������������������������� 10/13/18 0754 0036 0036 Александр Ochoa MD, FAC /EPI
--- NOTE | 2018-10-13 07:57 | EKG ---
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1970 Requested By: Ralph Holbrook Order Number: [id number] MD: Александр Ochoa Measurements Intervals [place] Rate: 102 P: 60 OR: 172 QRS: -49 QRSD: 112 T: 75 QT: 380 QTc: 496 Interpretive Statements Sinus tachycardia Ventricular premature complex Probable left atrial enlargement Left anterior fascicular block Poor R wave progression Cannot rule out high lateral infarct, age indeterminate ST elevation, probable early repolarization pattern Borderline prolonged QT interval Compared to ECG 12/24/2017 18:24:00 Ventricular premature complex(es) now present Electronically Signed On 10-13-2018 7:57:01 CDT by Александр Ochoa [email or web address] ��������������������������������������������� <ELECTRONICALLY SIGNED> ���������������������������������������� By: Александр Ochoa MD, FAC ��������������������������������������������� 10/13/18 0757 6 6 Александр Ochoa MD, [facility] /EPI
[2018-10-13 08:50] VITALS: BP 128/69
--- NOTE | 2018-10-13 11:04 | NUR ---
RD consult received for renal diet education. Pt with hx ESRD/dialysis, admitted with altered mental status, +cocaine/PCP, CHF. Medical noncompliance. Attempted visit, pt sleeping with head at opposite end of bed. Wt hx reviewed and appears stable around 150 lb. Will follow up again in few days when pt more alert to determine any dietary education needs and intake/appetite status.
[2018-10-13 12:09] VITALS: BP 96/69
[2018-10-13 16:48] VITALS: BP 115/64
--- NOTE | 2018-10-13 17:45 | NUR ---
PT CARE ASSUMED APPROX 0700. PT DROWSY MOST OF SHIFT AND ORIENTED TO PERSON ONLY. ORIENTED TO PLACE ONCE THIS SHIFT. AT THIS TIME PT IS ALERT BUT STILL CONFUSED. CALM AND BEAHVIORS ARE APPROPRIATE. ATIVAN MANAGING BEHAVIOR THIS SHIFT. HALDOL DC'D DUE PROLONGED QTI. PT DENIES CHEST PAIN OR GENERAL PAIN. DENIES SOA. VSS. APPETITE GOOD. GAIT UNASSESSED. PT HAS NOT MADE ANY ATTEMPTS TO GET OOB. TOLERATING POC. FAMILY AT BEDSIDE EARLIER IN SHIFT. CLINICAL UPDATE GIVEN. THEY DENY QUESTIONS OR CONCERNS AT THIS TIME. NO DISTRESS NOTED.
[2018-10-13 20:03] VITALS: BP 94/56
[2018-10-14 04:42] VITALS: BP 139/93
--- NOTE | 2018-10-14 05:18 | NUR ---
1900, pt alert and oriented. sleepy most of the night . denies pain , no sign of agitation. no Ativan given overnight. pt main concern was to get some food and when he will be able to go home . will continue to follow plan of care. Pt denies nausea, vomiting, or chest pain.Will continue to follow plan
[2018-10-14 07:57] VITALS: BP 135/84
[2018-10-14 10:17] VITALS: BP 135/84
[2018-10-14 11:14] VITALS: BP 117/72
[2018-10-14 14:25] VITALS: BP 135/84
--- NOTE | 2018-10-14 16:12 | NUR ---
PT DISCHARGED TODAY TO HOME AND HAS DIALYSIS WITH [facility]. DCP FAXED DC ORDERS/SUMMARY LEFT MSG WITH INTAKE THAT PT DC'D TODAY, CASE CLOSED,
== END 2018-10-14 14:30 | disposition home or self-care (01) | DRG 280 ==
LOC: ER 00:03 → 2N 02:09 → EROBS 02:09 → 2N 19:33 → ENTRNSPT 10-14 14:12 → EDTRNSPTSTS 10-14 14:14 → 2N 10-14 14:30
PROVIDERS: Emergency Medicine; ADMIT Hospitalist
PROC: 5A1D70Z Performance of Urinary Filtration, Intermittent, Less than 6 Hours Per Day (ICD-10-PCS; principal; 2018-10-12)
DX: I16.0 Hypertensive urgency (principal); I21.4 Non-ST elevation (NSTEMI) myocardial infarction; N18.6 End stage renal disease; I67.4 Hypertensive encephalopathy; I42.9 Cardiomyopathy, unspecified; I50.42 Chronic combined systolic (congestive) and diastolic (congestive) heart failure; I13.2 Hypertensive heart and chronic kidney disease with heart failure and with stage 5 chronic kidney disease, or end stage renal disease; K21.9 Gastro-esophageal reflux disease without esophagitis; J44.9 Chronic obstructive pulmonary disease, unspecified; E78.00 Pure hypercholesterolemia, unspecified; I27.20 Pulmonary hypertension, unspecified; F14.10 Cocaine abuse, uncomplicated; I08.1 Rheumatic disorders of both mitral and tricuspid valves; F19.10 Other psychoactive substance abuse, uncomplicated; I45.81 Long QT syndrome; Z89.022 Acquired absence of left finger(s); Z89.421 Acquired absence of other right toe(s); Z79.899 Other long term (current) drug therapy; Z79.82 Long term (current) use of aspirin; Z87.891 Personal history of nicotine dependence; Z82.49 Family history of ischemic heart disease and other diseases of the circulatory system; Z99.2 Dependence on renal dialysis; Z91.19 Patient's noncompliance with other medical treatment and regimen; Z71.51 Drug abuse counseling and surveillance of drug abuser
CPT/HCPCS: 10081; 32100

== ENCOUNTER 2018-10-24 02:06 | Emergency (ER) | payer OTHER ==
[~2018-10-24] VITALS: Ht 167.6 cm; Wt 69.0 kg
[~2018-10-24 02:06] MED LIST changes: +LINZESS72 MCG PO; +OMEPRAZOLE20 M2 PO; +RENAGEL800 MG PO; +TRAZODONE HCL50 MG PO
[2018-10-24 03:05] VITALS: BP 190/100
== END 2018-10-24 03:06 | disposition home or self-care (01) ==
LOC: ER 02:06
DX: S93.601A Unspecified sprain of right foot, initial encounter (principal); I13.0 Hypertensive heart and chronic kidney disease with heart failure and stage 1 through stage 4 chronic kidney disease, or unspecified chronic kidney disease; I50.30 Unspecified diastolic (congestive) heart failure; N18.6 End stage renal disease; J44.9 Chronic obstructive pulmonary disease, unspecified; E78.00 Pure hypercholesterolemia, unspecified; K21.9 Gastro-esophageal reflux disease without esophagitis; Z89.422 Acquired absence of other left toe(s); Z89.022 Acquired absence of left finger(s); Z86.2 Personal history of diseases of the blood and blood-forming organs and certain disorders involving the immune mechanism; Z99.2 Dependence on renal dialysis; Z98.890 Other specified postprocedural states; Z87.891 Personal history of nicotine dependence; W22.8XXA Striking against or struck by other objects, initial encounter; Y93.89 Activity, other specified; Y92.89 Other specified places as the place of occurrence of the external cause; Y99.8 Other external cause status

== ENCOUNTER 2018-10-30 09:09 | Emergency (ER) | payer OTHER ==
[~2018-10-30] VITALS: Ht 165.1 cm; Wt 66.2 kg
[2018-10-30 09:45] LABS: ABSOLUTE NEUTROPHILS 2.2 thou/uL (1.4-8.2); EOSINOPHILS 1.5 % (0.0-3.0); HEMATOCRIT 37.3 % (42.0-52.0); HEMOGLOBIN 12.8 gm/dL (14.0-18.0); LYMPHOCYTES 28.4 % (24.0-44.0); MCH 31.4 pg (26.0-34.0); MCHC 34.4 g/dL (28.0-37.0); MCV 91.3 fL (80.0-100.0); PLATELET COUNT 260 thou/uL (150-400); POLYS 57.1 % (36.0-66.0); RBC 4.08 mil/uL (4.50-6.00); RDW 14.1 % (10.5-14.5); WBC 3.8 thou/uL (4.0-11.0)
[2018-10-30 09:53] LABS: CALCIUM 9.5 mg/dL (8.5-10.1); CREATININE 5.7 mg/dL (0.7-1.3); POTASSIUM 3.4 mmol/L (3.5-5.1)
[2018-10-30 09:59] LABS: ALBUMIN 3.8 g/dL (3.4-5.0); DIRECT BILIRUBIN 0.5 mg/dL (<0.1-0.3); TOTAL BILIRUBIN 1.1 mg/dL (<0.1-1.0); TOTAL PROTEIN 8.4 g/dL (6.4-8.2)
[2018-10-30 10:07] LABS: URINE BILIRUBIN NEGATIVE (Negative); URINE BLOOD 1+ (Negative); URINE CLARITY CLEAR; URINE COLOR YELLOW; URINE GLUCOSE-RANDOM* NEGATIVE (Negative); URINE KETONES NEGATIVE (Negative); URINE LEUKOCYTES-REFLEX NEGATIVE (Negative); URINE NITRITE-REFLEX NEGATIVE (Negative); URINE PROTEIN (DIPSTICK) 2+ (Negative); URINE SPECIFIC GRAVITY 1.015 (1.005-1.035)
[2018-10-30 10:14] LABS: AMP/METHAMP Negative (Negative); BARBITURATES Negative (Negative); BENZODIAZEPINES Negative (Negative); COCAINE POSITIVE (Negative); METHADONE Negative (Negative); OPIATES Negative (Negative); PCP POSITIVE (Negative)
[2018-10-30 10:22] LABS: BACTERIA-REFLEX 1-9 Few /HPF (None Seen); CASTS None Seen /LPF (None Seen); CRYSTALS None Seen /LPF (None Seen); SQUAMOUS None Seen /LPF (0-3); URINE RBC None Seen /HPF (0-2); URINE WBC-REFLEX None Seen /HPF (0-5)
[2018-10-30] MEDS ORDERED: LASIX 80 MG TAB80 MG PO (10:54)
[2018-10-30] MEDS ORDERED: RENAGEL800 MG PO (10:55)
[2018-10-30] MEDS ORDERED: VITAMIN D5000 UNIT PO (10:56)
[2018-10-30 14:32] VITALS: BP 142/91
--- NOTE | 2018-10-31 10:28 | EKG ---
[address] [address] ELECTROCARDIOGRAM REPORT Name: YOLANDE LEDBETTER Room #: DEP [facility]#: [id number] Admission: 10/30/18 Attend Phys: Discharge: 10/30/18 Date of : 74 Report #: [id number] THIS REPORT FOR: //name// [facility] ED Test Date: 2018-10-30 Test Time: 09:27:36 Pat Name: YOLANDE LEDBETTER Department: Room: Gender: M Admissions Specialist: [facility] : 1970 Requested By: Stacy Forbes Order Number: [id number] MD: Александр Ochoa Measurements Intervals [place] Rate: 85 P: 54 RI: 181 QRS: -35 QRSD: 130 T: 70 QT: 441 QTc: 525 Interpretive Statements Sinus rhythm Left atrial enlargement Left ventricular hypertrophy with repolarization abnormality Prolonged QT interval Compared to ECG 10/12/2018 01:57:28 Sinus tachycardia no longer present Ventricular premature complex(es) no longer present Electronically Signed On 10-31-2018 10:28:38 CDT by Александр Ochoa [email or web address] <ELECTRONICALLY SIGNED> By: Александр Ochoa MD, [facility] 10/31/18 1028 0927 0927 Александр Ochoa MD, [facility] /EPI
== END 2018-10-30 14:33 | disposition home or self-care (01) ==
LOC: ER 09:09
PROVIDERS: Emergency Medicine
DX: F19.10 Other psychoactive substance abuse, uncomplicated (principal); R74.0 Nonspecific elevation of levels of transaminase and lactic acid dehydrogenase [LDH]; E78.00 Pure hypercholesterolemia, unspecified; F14.10 Cocaine abuse, uncomplicated; K21.9 Gastro-esophageal reflux disease without esophagitis; I13.2 Hypertensive heart and chronic kidney disease with heart failure and with stage 5 chronic kidney disease, or end stage renal disease; N18.6 End stage renal disease; I50.9 Heart failure, unspecified; Z99.2 Dependence on renal dialysis; Z87.891 Personal history of nicotine dependence; Z79.899 Other long term (current) drug therapy; Z79.82 Long term (current) use of aspirin

== ENCOUNTER 2018-11-07 20:19 | Inpatient (IN) | payer OTHER ==
[~2018-11-07] VITALS: Ht 167.6 cm; Wt 66.0 kg
[~2018-11-07 20:19] MED LIST changes: +LASIX 80 MG TAB80 MG PO; +VITAMIN D5000 UNIT PO
[2018-11-07 20:23] VITALS: BP 146/99
[2018-11-07 21:06] LABS: HEMATOCRIT 37.3 % (42.0-52.0); HEMOGLOBIN 12.3 gm/dL (14.0-18.0); MCH 31.8 pg (26.0-34.0); MCV 96.2 fL (80.0-100.0); RBC 3.88 mil/uL (4.50-6.00); RDW 16.1 % (10.5-14.5); WBC 3.3 thou/uL (4.0-11.0)
[2018-11-07 21:12] LABS: CALCIUM 9.1 mg/dL (8.5-10.1); CREATININE 11.6 mg/dL (0.7-1.3); POTASSIUM 4.4 mmol/L (3.5-5.1); SALICYLATE 3.8 mg/dL (2.8-20.0)
[2018-11-07 21:59] LABS: URINE BILIRUBIN NEGATIVE (Negative); URINE BLOOD 1+ (Negative); URINE CLARITY CLEAR; URINE COLOR YELLOW; URINE GLUCOSE-RANDOM* NEGATIVE (Negative); URINE KETONES NEGATIVE (Negative); URINE LEUKOCYTES-REFLEX NEGATIVE (Negative); URINE NITRITE-REFLEX NEGATIVE (Negative); URINE PROTEIN (DIPSTICK) 2+ (Negative)
[2018-11-07 22:07] VITALS: BP 147/103
[2018-11-07 22:11] LABS: BACTERIA-REFLEX None Seen /HPF (None Seen); CRYSTALS None Seen /LPF (None Seen); HYALINE CASTS 0-3 Few /LPF (None Seen); MUCUS None Seen strn/LPF (None Seen); SQUAMOUS 0-3 Few /LPF (0-3); URINE RBC 0-2 Rare /HPF (0-2); URINE WBC-REFLEX None Seen /HPF (0-5)
[2018-11-07 22:30] VITALS: BP 145/100
[2018-11-07 22:30] LABS: AMP/METHAMP Negative (Negative); BARBITURATES Negative (Negative); BENZODIAZEPINES Negative (Negative); COCAINE POSITIVE (Negative); METHADONE Negative (Negative); OPIATES POSITIVE (Negative); PCP POSITIVE (Negative)
--- NOTE | 2018-11-07 22:30 | NUR ---
AFFIDAVITS BY CHARGE NURSE MACKENZIE AND DR DE LA CRUZ SENT WITH PT TO ICU.
[2018-11-07 22:56] VITALS: BP 146/103
[2018-11-07 23:00] VITALS: BP 152/105
[2018-11-08] VITALS (27 sets, daily range): BP systolic 144–189; BP diastolic 45–107
--- NOTE | 2018-11-08 02:55 | NUR ---
ASSUMED CARE OF PT. FROM ED AT 2355. AT THAT TIME PT. WAS ALERT AND OREINTED X4, CALM AND COOPERATIVE, WITH LITTLE SIGN OF DISTRESS. ADMISSION ASSESSMENT CHARTED. STAT CONSULTS CALLED. AT APPROXIMAELY 0020, PT. ASKED TO HAVE HIS PHONE, WHEN NURSING STAFF AND SITTER EXPLAINED THAT HE COULD NOT HAVE HIS PHONE DUE TO PT. SI STATUS, HE IMMEDEATELY JUMPED OUT OF THE BED AND STARTED SCREAMING "GIVE ME MY GODDAMN PHONE" AT THAT POINT IT TOOK 7 STAFF MEMEBERS TO GET PT. BACK IN BED. HE WAS BITING AND SCREAMING, AND VIOLENTLY MOVING ALL EXTREMITIES. ONCE PLACED IN BED, PT. WAS PUT ON 4 POINT SOFT BILATERAL WRIST/ANKLE RESTRAINTS. SECURITY WAS AT THE BEDSIDE UNTIL ALL RESTRAINTS WERE PUT ON. ONCE PT. AND NURSING STAFF SAFTY WAS MAINTAINED DR. DOWLING WAS CALLED TO GET MEDICATION ORDERS FOR THIS PT. AND IVS WERE PLACED DUE TO THE PT. DISCONTINUING IV PLACED IN ED. PT. SEEMED TO CALM DOWN AT THIS POINT. AT 0130 PT. ASKED FOR FOOD, WHEN NURSING STAFF EXPLAINED THAT THE PT. WAS NPO DUE TO ANGIOEDEMA, HE BECAME MORE AGGRESIVE, AND TRIED TO BITE OFF HIS RESTRAINTS. HE ALSO STARTED THREATENING THE SITTER, SECURITY STAFF, AND NURSING STAFF STATING "I AM GOING TO COME BACK AND SHOOT THIS PLACE UP" AND "I CAN GET OUT OF THESE RESTRAINTS YOU JUST WATCH ME" AN ORDER WAS GIVEN AT [address] LEATHER/SECURITY RESTAINTS TO BILATERAL ANKLES/WRISTS. ONCE PT. WAS IN THESE RESTRAINTS AND PRECEDEX AND HALDOL GIVEN. PT. WAS LESS AGITATED AND STARTED TO CALM DOWN. AT THE MOMENT THE PT. IS RESTING IN BED. PT. AND NURSING STAFF SAFETY HAS BEEN MAINTAINED. SEE RESTRAINT DOCUMENTATION. WILL CONTINUE TO MONITOR.
--- NOTE | 2018-11-08 04:22 | NUR ---
UPON ASSESSMENT AT 0400, PT. DID NOT WAKE UP TO STERNAL RUB, PRECEDEX GTT TURNED DOWN FROM 1.4 MCG/KG/HR TO 1.2 MCG/KG/HR. 5 MINUTES AFTER CHANGE IN GTT PT. STARTED TO WAKE UP AND TRIED TO GET OUT OF BED, PRECEDEX GTT RETURNED TO 1.4 MCG/KG/HR. WILL CONTINUE TO MONITOR.
--- NOTE | 2018-11-08 06:42 | NUR ---
PT. AND NURSING STAFF REMAINED SAFE THROUGH REMAINEDER OF SHIFT. 4 POINT RESTANTS REMAIN ON PT. MEDICATION TITRATION CHARTED. WILL CONTINUE TO MONITOR.
--- NOTE | 2018-11-08 09:05 | NUR ---
ASSUMED CARE @ 0700 11/08/18, PT ASSESSMENTS AND VSS COMPLETE PER ICU PROTOCOL. PT ON PRECEDEX GTT, PT NOT FOLLOWING COMMANDS AT THIS TIME BUT ABLE TO WITHDRAW FOR PAIN. PT ENCOUNTERED ON 4 POINT RESTRAINTS, PT ASSESSED BY DR JAUREGUI AND ORDER CHANGED TO TWO POINT RESTRAINTS. PT STILL IN 1:1 OBSERVATION DUE TO SI ADMISSION STATUS. PLAN OF CARE- CONT TO MAINTAIN PT SAFETY.
--- NOTE | 2018-11-08 10:47 | NUR ---
ASSUMED CARE AT 0930. ASLEEP AND SEDATED ON PRECEDEX. SOFT RESTRAINTS TO BUE. SUICIDE PRECAUTIONS IN PLACE. SITTER AT BEDSIDE. VSS. WILL CONTINUE TO MONITOR.
--- NOTE | 2018-11-08 13:06 | NUR ---
10 am: spoke with psych and updated md on patient condition. very sedated and unable to participate in interview. will see tomorrow
[2018-11-09] VITALS (34 sets, daily range): BP systolic 106–181; BP diastolic 27–131
--- NOTE | 2018-11-09 04:19 | NUR ---
ASSUMED CARE OF PT. AT 1900. PT. AND NURSE SAFETY MAINTAINED. SEE RESTRAINT DOCUMENTATION. PT. STILL HAS OCCASSIONAL OUTBURSTS, BUT HAS STAYED CALM FOR MOST OF THE SHIFT WITH PRECEDEX GTT AND HALDOL PRN. HIGH BLOOD PRESSURE AT BEGINNING OF SHIFT, AGING ROOM HAND CALLED, ORDERS RECIEVED. BLOOP PRESSURE WITHIN NORMAL LIMITS. PT. ABLE TO VOID TWICE, ONE TIME OF INCONTINENCE, THEN IN URINAL. PT. STATED HE WOULD LIKE AN ENEMA TO HELP MAKE A BM. ASSESSMENTS AND VITAL SIGNS CHARTED. MEDICATION TITRATION CHARTED. FOLLOW POC, PT. WILL GET DIALYSIS TODAY. WILL CONTINUE TO MONITOR.
[2018-11-09 05:47] LABS: HEMOGLOBIN 12.2 gm/dL (14.0-18.0); MCH 31.5 pg (26.0-34.0); MCHC 32.9 g/dL (28.0-37.0); MCV 95.7 fL (80.0-100.0); PLATELET COUNT 155 thou/uL (150-400); RBC 3.86 mil/uL (4.50-6.00); RDW 15.8 % (10.5-14.5); WBC 2.4 thou/uL (4.0-11.0)
[2018-11-09 06:04] LABS: ALBUMIN 2.8 g/dL (3.4-5.0); CALCIUM 8.9 mg/dL (8.5-10.1); CREATININE 11.8 mg/dL (0.7-1.3); POTASSIUM 5.5 mmol/L (3.5-5.1)
--- NOTE | 2018-11-09 06:48 | HC ---
[facility] [place] [address] CONSULTATION Name: YOLANDE LEDBETTER Room #: 240-P ADM IN M.R.#: [id number] Admission: 11/07/18 Attend Phys: Paul Atwood MD Discharge: Date of : 74 Report #: [id number] THIS REPORT FOR: //name// CC: Nolan Atwood DATE OF SERVICE: 11/08/2018 REASON FOR CONSULTATION: End-stage renal disease requiring hemodialysis. HISTORY OF PRESENT ILLNESS: This is a 48-year-old male who has end-stage renal disease and is a chronic hemodialysis patient. He came in through the Emergency Room yesterday complaining of difficulty swallowing and moving air. He had been smoking some crack cocaine and based upon his drug screen that was laced with PCP. He was admitted and then became very combative. He remains in the ICU, currently on Precedex. He has had no further problems with his breathing. No stridor has been witnessed. He has been maintaining oxygen saturation fine. From a dialysis standpoint, he has end-stage renal disease and has been on dialysis on a Friday, Friday, Friday basis. He is not wiser enough to tell me if he got dialysis 2 days ago, which was his usual dialysis day, but based upon his labs, I think he probably had that dialysis. He has longstanding hypertension, severe cardiomyopathy with apparent ejection fraction of 30%. He has severe mitral and triscuspid regurgitation. He also has pulmonary hypertension. He has had a past history of substance abuse. He has had a left transmetatarsal amputation and a finger amputation. MEDICATIONS: Based upon a list that cannot be verified by the patient at this time include lisinopril 5 mg daily, carvedilol 25 mg twice daily, furosemide 80 mg daily, vitamin D3 5000 units daily, clonidine 0.1 mg b.i.d., amlodipine 10 mg daily, atorvastatin 40 mg daily, aspirin 81 mg daily, isosorbide mononitrate 30 mg daily, omeprazole 20 mg daily, trazodone 50 mg daily and Linzess 75 mcg daily. Of those, I am totally uncertain how many he takes. I also do not have a list of what his dialysis related medications include. ALLERGIES: No known medical allergies. FAMILY HISTORY: Unavailable. SOCIAL HISTORY: The patient is single, lives in [facility]. He is medically disabled. REVIEW OF SYSTEMS: Very agitated upon arrival in the Intensive Care Unit, was started on Precedex and also has a sitter present in the room. PHYSICAL EXAMINATION: [facility] [address] [place] [address] CONSULTATION Name: YOLANDE LEDBETTER Room #: [facility] IN .R.#: [id number] Admission: 11/07/18 Attend Phys: Paul Atwood MD Discharge: Date of : 74 Report #: [id number] GENERAL: A 48-year-old male, currently sedated. Again, no respiratory distress. VITAL SIGNS: Blood pressure 158/95, heart rate 55, respiratory rate 19, oxygen saturation 96%, temperature 97.6 degrees Fahrenheit. HEENT: Shows pupils are reactive. Sclerae are nonicteric. He is nasally breathing without evidence of stridor. NECK: Supple, no JVD. CHEST: Shows shallow respirations bilaterally. No rales, rhonchi or wheezes. CARDIOVASCULAR: Heart has a regular bradycardia. ABDOMEN: Has active bowel sounds and is soft. EXTREMITIES: Shows left transmetatarsal amputation. He has no peripheral edema. He has a right arm fistula in place with good flow. LABORATORY DATA: Sodium 135, potassium 4.4, chloride 98, bicarbonate 22, BUN 87 and his creatinine 11.6, calcium 9.1. Drug screen positive for cocaine, opiates, and phencyclidine. White count 3.3, hemoglobin 12.3, hematocrit 37.3, platelets 195,000. Urinalysis, specific gravity of 1.020, pH 6.0, 2+ protein, 1+ blood, otherwise negative. ASSESSMENT: 1. End-stage renal disease. Tomorrow is his usual dialysis day. At this point, he does not have indication for acute hemodialysis. We will plan for his regular dialysis tomorrow. 2. Polysubstance abuse with severe mental status changes related to that. Psychiatrist to see him. 3. Severe cardiomyopathy as noted above. This is obviously a very difficult situation. We will assist as able at this point. Again, we will plan for dialysis tomorrow. <ELECTRONICALLY SIGNED> By: Blade Whyte MD 11/09/18 0648 1153 [id number] Blade Whyte MD /nt
[2018-11-09 07:56] LABS: ANISOCYTOSIS SLIGHT
[2018-11-10 04:09] VITALS: BP 148/89
--- NOTE | 2018-11-10 04:55 | NUR ---
ASSUMED PT CARE AROUND 1900. PT IS A&OX4. PT C/O CRAMPING IN HIS HANDS MOST OF THE NIGHT. NOTIFIED BUSINESS APPLICATIONS SPECIALIST [employer] FOR HOSPITALIST. ORDER RECEIVED AND MUSCLE RELAXANT GIVEN ORDERED. RINSED PT'S HANDS IN WARM WATER TO ALSO HELP WITH CRAMPING. PT WAS CALM UPON INITIAL ASSESSMENT BUT THEN BECAME VERY RESTLESS THE REST OF THE NIGHT. PT FIXATES ON CERTAIN THINGS AND WON'T REST FROM THINKING ABOUT THEM, SUCH THINKING HE NEEDS IVF AFTER HAVING DIALYSIS YESTERDAY. EDUCATION GIVEN AND RN ATTEMPTED TO EXPLAIN POC TO PT BUT HE DOES NOT APPEAR TO LISTEN. HALDOL AND SEROQUEL GIVEN INDICATED FOR AGITATION. PT WAS AWAKE MOST OF THE NIGHT. SITTER AT BEDSIDE. FALL PRECAUTIONS IN PLACE. BUSINESS APPLICATIONS SPECIALIST KNITTER [employer] M[employer] FOR HOSPITALIST UPDATED AGAIN THIS MORNING ABOUT PT COMPLAINTS ABOUT HAND CRAMPS AND WANTING IVF. ORDER RECEIVED FOR LABS. PROGRESSING SLOWLY TOWARD POC GOALS. WILL CONTINUE TO MONITOR FURTHER.
[2018-11-10 05:57] LABS: CALCIUM 8.1 mg/dL (8.5-10.1); MAGNESIUM 2.1 mg/dL (1.8-2.4); POTASSIUM 4.5 mmol/L (3.5-5.1)
[2018-11-10 05:59] LABS: CREATININE 7.7 mg/dL (0.7-1.3)
--- NOTE | 2018-11-10 08:34 | NUR ---
REPORT RECEIVED - PT CONTINUALLY STATING I NEED MORE FLUIDS - UNABLE TO REDIRECT - COMPULSIVE BEHAVIOR - JUMPED OOB REPEATEDLY STATING I NEED TO SAMAYOA SAMAYOA - AGAIN UNABLE TO REDIRECT DR. CLAYTON CAME TO BEDSIDE - 250ML NS BOLUS ORDERED - NEW IV STARTED AND FLUIDS GIVEN - PT CONTINUES TO STATE I NEED MORE FLUIDS - UNABLE TO REDIRECT
[2018-11-10 09:30] VITALS: BP 164/102
[2018-11-10] MEDS ORDERED: SEROQUEL 50 MG50 MG PO (10:19)
[2018-11-10 10:36] VITALS: BP 164/102
--- NOTE | 2018-11-10 12:49 | NUR ---
patient admits from [facility] from substance abuse and SI ideation in ER. Patient to dc today. Have attempted to call motherx2. Rn called aunt and reports his brother will come and pick patient up for dc home. Have left [facility] information as well as other substance abuse numbers in dc order. Patient sleeping soundly. Called [facility]ie Pint[facility] to determine if patients dialysis clinic.
--- NOTE | 2018-11-10 13:11 | NUR ---
DR. JAUREGUI AND DR. ARMENDARIZ BOTH SAW PT - PT STABILIZED MENTALLY - FOLLOWING COMMANDS - AWARE OF SITUATION AND SURROUNDINGS - ABLE TO FEED/DRESS SELF - ABLE TO AMBULATE TO BATHROOM /S DIFFICULTY - BROTHER CAME TO BEDSIDE TO TAKE PT HOME - RESOURCES GIVEN FOR FOLLOW UP RECOMMENDATIONS - DISCHARGE INSTRUCTIONS GIVEN - PT VERBALIZED UNDERSTANDING - WHEELED OUT IN WC INTO THE CARE OF BROTHER - AUNT AND MOTHER UPDATED ON PT'S DISCHARGE
== END 2018-11-10 13:05 | disposition home or self-care (01) | DRG 917 ==
LOC: ER 20:19 → ICU 22:06 → EROBS 22:06 → ICU 22:40
PROVIDERS: Emergency Medicine; Nurse Practitioner Acute Care; ADMIT Hospitalist
PROC: 5A1D70Z Performance of Urinary Filtration, Intermittent, Less than 6 Hours Per Day (ICD-10-PCS; principal; 2018-11-10)
DX: T40.5X1A Poisoning by cocaine, accidental (unintentional), initial encounter (principal); N18.6 End stage renal disease; R45.851 Suicidal ideations; I42.9 Cardiomyopathy, unspecified; I50.42 Chronic combined systolic (congestive) and diastolic (congestive) heart failure; I13.2 Hypertensive heart and chronic kidney disease with heart failure and with stage 5 chronic kidney disease, or end stage renal disease; F14.121 Cocaine abuse with intoxication with delirium; T78.3XXA Angioneurotic edema, initial encounter; R45.850 Homicidal ideations; I27.20 Pulmonary hypertension, unspecified; E78.00 Pure hypercholesterolemia, unspecified; J44.9 Chronic obstructive pulmonary disease, unspecified; R41.0 Disorientation, unspecified; T50.905A Adverse effect of unspecified drugs, medicaments and biological substances, initial encounter; F14.10 Cocaine abuse, uncomplicated; I08.1 Rheumatic disorders of both mitral and tricuspid valves; F39 Unspecified mood [affective] disorder; K21.9 Gastro-esophageal reflux disease without esophagitis; E78.5 Hyperlipidemia, unspecified; I73.9 Peripheral vascular disease, unspecified; F17.210 Nicotine dependence, cigarettes, uncomplicated; Z82.49 Family history of ischemic heart disease and other diseases of the circulatory system; Z79.82 Long term (current) use of aspirin; Z79.899 Other long term (current) drug therapy; Z89.9 Acquired absence of limb, unspecified; Y92.89 Other specified places as the place of occurrence of the external cause; Z89.422 Acquired absence of other left toe(s); Z91.14 Patient's other noncompliance with medication regimen
CPT/HCPCS: 10078; 10204; 32100

== ENCOUNTER 2018-11-19 04:45 | Emergency (ER) | payer OTHER ==
[~2018-11-19] VITALS: Ht 152.4 cm; Wt 73.0 kg
[~2018-11-19 04:45] MED LIST changes: +SEROQUEL 50 MG50 MG PO
[2018-11-19 05:57] LABS: HEMATOCRIT 34.2 % (42.0-52.0); HEMOGLOBIN 11.1 gm/dL (14.0-18.0); MCH 31.2 pg (26.0-34.0); MCHC 32.4 g/dL (28.0-37.0); MCV 96.3 fL (80.0-100.0); PLATELET COUNT 203 thou/uL (150-400); RBC 3.55 mil/uL (4.50-6.00); RDW 15.4 % (10.5-14.5); WBC 4.5 thou/uL (4.0-11.0)
[2018-11-19 06:05] LABS: CALCIUM 8.2 mg/dL (8.5-10.1); CREATININE 10.3 mg/dL (0.7-1.3); POTASSIUM 3.9 mmol/L (3.5-5.1)
[2018-11-19 06:12] LABS: AMP/METHAMP Negative (Negative); BARBITURATES Negative (Negative); BENZODIAZEPINES Negative (Negative); COCAINE POSITIVE (Negative); METHADONE Negative (Negative); OPIATES Negative (Negative); PCP POSITIVE (Negative)
[2018-11-19 06:14] LABS: ALBUMIN 3.6 g/dL (3.4-5.0); TOTAL BILIRUBIN 0.7 mg/dL (<0.1-1.0); TOTAL PROTEIN 7.6 g/dL (6.4-8.2); TROPONIN-I 0.31 ng/mL (<0.06)
[2018-11-19 06:53] VITALS: BP 145/101
[2018-11-19 07:59] LABS: ABSOLUTE NEUTROPHILS 2.7 thou/uL (1.4-8.2); ANISOCYTOSIS 1+
--- NOTE | 2018-11-19 08:35 | EKG ---
[address] [address] ELECTROCARDIOGRAM REPORT Name: YOLANDE LEDBETTER [id number] Admission: 11/19/18 Attend Phys: Discharge: 11/19/18 Date of : 74 Report #: [id number] THIS REPORT FOR: //name// [facility] ED Test Date: 2018-11-19 Test Time: 05:53:09 Pat Name: YOLANDE LEDBETTER Department: Room: Gender: M Head Of Product: MARY : 1970 Requested By: Kristan Cote Order Number: [id number] MD: Александр Ochoa Measurements Intervals [place] Rate: 87 P: 37 TX: 188 QRS: -34 QRSD: 116 T: 90 QT: 425 QTc: 512 Interpretive Statements Sinus rhythm Left atrial enlargement Left ventricular hypertrophy Prolonged QT interval Compared to ECG 10/30/2018 09:27:36 No significant change was found Electronically Signed On 11-19-2018 8:35:37 CDT by Александр Ochoa [email or web address] <ELECTRONICALLY SIGNED> By: Александр Ochoa MD, [facility] 11/19/18 0835 0553 0553 Александр Ochoa MD, [facility] /EPI
== END 2018-11-19 06:55 | disposition still patient (30) ==
LOC: ER 04:45
PROVIDERS: Student in an Organized Health Care Education/Training Program
DX: I12.0 Hypertensive chronic kidney disease with stage 5 chronic kidney disease or end stage renal disease (principal); N18.6 End stage renal disease; R06.02 Shortness of breath; F19.10 Other psychoactive substance abuse, uncomplicated; Z99.2 Dependence on renal dialysis; I42.9 Cardiomyopathy, unspecified; E78.00 Pure hypercholesterolemia, unspecified; J44.9 Chronic obstructive pulmonary disease, unspecified; K21.9 Gastro-esophageal reflux disease without esophagitis; Z86.2 Personal history of diseases of the blood and blood-forming organs and certain disorders involving the immune mechanism; Z87.891 Personal history of nicotine dependence

== ENCOUNTER 2019-01-17 18:49 | Inpatient (IN) | payer OTHER ==
[~2019-01-17] VITALS: Ht 167.6 cm; Wt 65.8 kg
[2019-01-17 19:02] VITALS: BP 155/96
[2019-01-17 19:07] LABS: URINE BILIRUBIN NEGATIVE (Negative); URINE BLOOD 3+ (Negative); URINE CLARITY SL CLOUDY; URINE COLOR YELLOW; URINE GLUCOSE-RANDOM* TRACE (Negative); URINE KETONES NEGATIVE (Negative); URINE NITRITE-REFLEX NEGATIVE (Negative); URINE PROTEIN (DIPSTICK) 1+ (Negative); URINE UROBILINOGEN 0.2 E.U./dl (0.2-1.0)
[2019-01-17 19:09] LABS: URINE LEUKOCYTES-REFLEX 2+ (Negative)
[2019-01-17 19:14] LABS: SQUAMOUS None Seen /LPF (0-3); URINE RBC >20 Many /HPF (0-2)
[2019-01-17 19:15] LABS: BACTERIA-REFLEX 1-9 Few /HPF (None Seen); CASTS None Seen /LPF (None Seen); CRYSTALS None Seen /LPF (None Seen); URINE WBC-REFLEX 6-15 Few /HPF (0-5)
[2019-01-17 19:40] LABS: ABSOLUTE NEUTROPHILS 4.4 thou/uL (1.4-8.2); BASOPHILS 0.7 % (0.0-2.0); HEMATOCRIT 32.3 % (42.0-52.0); HEMOGLOBIN 10.5 gm/dL (14.0-18.0); MCHC 32.3 g/dL (28.0-37.0); MCV 95.9 fL (80.0-100.0); MONOCYTES 9.1 % (1.0-8.0); PLATELET COUNT 220 thou/uL (150-400); POLYS 80.2 % (36.0-66.0); RBC 3.37 mil/uL (4.50-6.00); RDW 15.4 % (10.5-14.5); WBC 5.5 thou/uL (4.0-11.0)
[2019-01-17 19:43] LABS: AMP/METHAMP Negative (Negative); BARBITURATES Negative (Negative); BENZODIAZEPINES Negative (Negative); COCAINE POSITIVE (Negative); METHADONE Negative (Negative); OPIATES Negative (Negative); PCP Negative (Negative)
[2019-01-17 19:52] LABS: APTT 25.6 Seconds (24.5-32.8); INR 1.1
[2019-01-17 20:10] LABS: CREATININE 7.9 mg/dL (0.7-1.3); POTASSIUM 4.4 mmol/L (3.5-5.1)
[2019-01-17 20:20] LABS: ALBUMIN 3.6 g/dL (3.4-5.0); MAGNESIUM 2.4 mg/dL (1.8-2.4); TOTAL BILIRUBIN 0.6 mg/dL (<0.1-1.0); TOTAL PROTEIN 7.9 g/dL (6.4-8.2); TROPONIN-I 0.11 ng/mL (<0.06)
[2019-01-17 21:59] VITALS: BP 166/112
[2019-01-17 22:30] VITALS: BP 171/116
[2019-01-18 01:06] VITALS: BP 169/117
[2019-01-18 05:00] VITALS: BP 132/80
--- NOTE | 2019-01-18 07:26 | NUR ---
PT WAS ADMITTED TO THE UNIT FROM ER LAST NIGHT AROUND 2300, VSS EXCEPT BLOOD PRESSURE WHICH WAS ELEVATED. BENITEZ VANESSA NOTIFIED, PT HOME BP REGULATING MEDS RESUMED. PT COMPLAINED PF PAIN IN HIS BACK, MORPHINE GIVEN; PARTIAL PAIN RELIEF REPORTED. PT WAS GIVEN EDEUCATION ON LIFESTYLE CHANGES ON DRUG AND ALCOHOL ABUSE BY THIS NURSE. PT IS WANTING A MEDICINE FOR HIS NON PRODUCTIVE COUGH. PT SLEPT FOR MOST OF THE NIGHT, PT IS STABLE, DIALYSIS FISTULA PALPABLE THRILL AND AUDIBLE BRUIT, MWF SCHEDULE. PT HAD GOOD URINE OUTPUT OVER NIGHT WHICH WAS BLOOD TINGED, PT IS STABLE, WILL CONTINUE TO MONITOR PER POC.
--- NOTE | 2019-01-18 07:47 | EKG ---
[address] [place] [address] ELECTROCARDIOGRAM REPORT Name: YOLANDE LEDBETTER Room #: 207- ADM IN M.R.#: [id number] Admission: 01/17/19 Attend Phys: Qi Walton MD Discharge: Date of : 74 Report #: [id number] THIS REPORT FOR: //name// [facility] ED Test Date: 2019-01-17 Test Time: 19:07:28 Pat Name: YOLANDE LEDBETTER Department: Room: [facility] Gender: M Functional Manager: HIREN : 1970 Requested By: Randy Bliss Order Number: [id number] MD: Александр Ochoa Measurements Intervals [place] Rate: 69 P: -9 ND: 220 QRS: -49 QRSD: 120 T: 120 QT: 430 QTc: 461 Interpretive Statements Sinus rhythm Left anterior fascicular block Poor R wave progression T-wave abnormality, consider lateral ischemia Compared to ECG 11/19/2018 05:53:09 no significant change was found Electronically Signed On 01-18-2019 7:46:45 PLANT CHANGER by Александр Ochoa [email or web address] <ELECTRONICALLY SIGNED> By: Александр Ochoa MD, [facility] 01/18/19 [id number] Александр Ochoa MD, [facility] /EPI
[2019-01-18 08:00] VITALS: BP 129/85
--- NOTE | 2019-01-18 12:07 | NUR ---
PT GETING DIALYSIS TREATENT. COMPLAINTS OF FLANK PAIN AND URINE IS BLOOD TINGE. PAIN MEDS GIVEN RATES PAIN A 10 THEN SLEEPING. TOLERATING TREATMENT. LABS DRAWN TODAY. FISTULA IN RIGHT ARM BRUIT AND THRILL. LEFT FOOT IS TOES ARE AMPUTATED. NO CONCERNS OR ISSUES NOTED AT THIS TIME PER NURSING.
--- NOTE | 2019-01-18 15:25 | NUR ---
met with patient who reports he lives with aunt and uncle. He dializes at [facility]. he reports he is connected to [facility] and has a jewelry sales associate Rafy. He reports he missed apt but plans f/u with them. He speaks as though at [place] he is returning to [facility]. left message with Marko at [facility] to call casemgt. [facility] at [facility]. Family drives patient to/from dialysis.
[2019-01-18 16:00] VITALS: BP 143/96
--- NOTE | 2019-01-18 17:07 | NUR ---
PT IS ALERT AND ORIENTED X4. HX DRUG USE. CAN BE AGITATED AT TIMES WITH STAFF. EXPLAIN TO PT NO NEED FOR THAT WHAT IS HIS NEEDS AND I WILL TAKE CARE OF THINGS. WITH DIALYSIS HE WAS RUDE TO HER WITH TREATEMENT. PAIN MEDS GIVEN RATES FLANK PAIN A 10. MORPHINE GIVEN FOR DISCOMFORT. LUNGS ARE CLEAR. UP SHOWERED THIS EVENING. NO ISSUES OR CONCERNS. BRUIT THRILL IN RIGHT UPPER ARM. WILL CONTINUE TO ASSESS AND MONITOR PER NURSING
[2019-01-18 19:21] VITALS: BP 136/91
--- NOTE | 2019-01-19 00:02 | NUR ---
Transfer pt from CCU. arrived unit at change of shift. pt a&ox4. pt is independent with steady gait. pt left foot all toes are amputated and first digit, long finger in left hand amputated as well. pt c/o of flank pain and was medicated per emar with full relieve. pt was able to get some sleep most of the night. pt stated to nurse that she was suddenlty feeling sad, pt denies SI/HI. pt said he felt better after he spoke with his mom and uncle over the phone. elevated BP treated with clonidine. no s/s of distress. call mcghee within reach. pt is encouraged and able to discuss feelings with staff. will cont to monitor
[2019-01-19 04:50] VITALS: BP 141/83
[2019-01-19 12:15] VITALS: BP 138/84
[2019-01-19 15:18] VITALS: BP 123/83
--- NOTE | 2019-01-19 17:44 | NUR ---
Assumed patient care at 0715. Vital signs have been stable. He has been given Morphine 4mg IV push x's 2 during this shift for "level ten flank pain." This medication has been effective. Patient has been independent with his personal cares, taking a shower, ect. He has been compliant with his medication. Patient can get a little "hot headed" at times; it helps to have an extra nurse or CALENDER LET OFF OPERATOR when he gets like this. Will continue to monitor. POC followed.
[2019-01-19 19:47] VITALS: BP 133/78
[2019-01-20 07:15] VITALS: BP 137/56
--- NOTE | 2019-01-20 08:09 | NUR ---
PROGRESS PT A/O X 4 COOPERATIVE AND PLEASANT DURING CARES RATING FLAMK PAIN AN 2 TO AN 8 TAKING 4 MG MORPHINE IV WITH GOOD EFFECT PT SLEPT THROUGHOUT NOC WITHOUT C/O PAIN. AV FISTULA TO DUSTY WITH GOOD BRUIT AND TRILL TO HAVE DIALYSIS THIS AM CONTINUE POC.
--- NOTE | 2019-01-20 13:13 | NUR ---
Assumed pt care at 7am.Pt in room having hemodilaysis. Assessment completed. vss. Pt requested for all am meds including bp meds.Rn informed pt that bp meds usually held till after dialysis but pt insisted on taking it.Meds given including pain med.After treatment,pt called out and wanted anti itch med. Dr Jackson notified and order received.Per management intern report, 3l of fluid was taken off today.Pt in bed resting at present.Will continue to monitor.
[2019-01-20 13:40] LABS: HEMATOCRIT 33.2 % (42.0-52.0); HEMOGLOBIN 10.7 gm/dL (14.0-18.0); MCH 30.1 pg (26.0-34.0); MCHC 32.4 g/dL (28.0-37.0); PLATELET COUNT 207 thou/uL (150-400); RBC 3.57 mil/uL (4.50-6.00); RDW 14.5 % (10.5-14.5)
[2019-01-20 13:54] LABS: ALBUMIN 3.3 g/dL (3.4-5.0); CALCIUM 9.7 mg/dL (8.5-10.1); CREATININE 3.7 mg/dL (0.7-1.3); PHOSPHORUS 2.6 mg/dL (2.5-4.9); POTASSIUM 3.1 mmol/L (3.5-5.1)
[2019-01-20 14:13] LABS: ABSOLUTE NEUTROPHILS 1.8 thou/uL (1.4-8.2); PLATELET ESTIMATE NORMAL
[2019-01-20 16:10] VITALS: BP 127/74
[2019-01-20 20:05] VITALS: BP 128/67
--- NOTE | 2019-01-21 03:28 | NUR ---
ASSUMED CARE OF PT AT 1900HRS. PT IS AOX4 AND LETS NEEDS BE KNOWN. PT IS UP AD VERONICA. PT COMPLAINED OF NAUSEA AND FLANK PAIN. PT WAS TREATED WITH PRN PAIN MEDS. PT WAS ABLE TO GET COMFORTABLE AND SLEEP PART OF THE SHIFR. PT HAS RIGHT AV FISTULA. PT GETS DIALYSIS ON M/W/. VSS AND NO S/S OF ACUTE DISTRESS. WILL CONTINUE TO MONITOR.
[2019-01-21 05:46] LABS: HEMATOCRIT 33.7 % (42.0-52.0); HEMOGLOBIN 10.8 gm/dL (14.0-18.0); MCV 93.7 fL (80.0-100.0); RBC 3.59 mil/uL (4.50-6.00); RDW 14.6 % (10.5-14.5); WBC 3.2 thou/uL (4.0-11.0)
[2019-01-21 06:02] LABS: POTASSIUM 3.8 mmol/L (3.5-5.1)
[2019-01-21 06:09] LABS: CREATININE 5.6 mg/dL (0.7-1.3)
--- NOTE | 2019-01-21 07:41 | HC ---
[facility] [place] [address] CONSULTATION Name: YOLANDE LEDBETTER Room #: 456-P ADM IN M.R.#: [id number] Admission: 01/17/19 Attend Phys: Popeye Veloz MD Discharge: Date of : 74 Report #: [id number] THIS REPORT FOR: //name// CC: Qi Sen REASON FOR THE CONSULTATION: End-stage renal disease. REASON FOR THE PRESENTATION: Flanks pain. HISTORY OF PRESENT ILLNESS: A 48-year-old with extensive past medical history including cardiomyopathy with an ejection fraction of around 15%, also known to have hypertension, noncompliance with medical care. He is on end-stage renal disease, maintained on hemodialysis in another dialysis unit. He has had issues with substance abuse in the past. He has required numerous hospitalizations at different facilities, including most recently [facility] hospitalizations. He presented with flanks pain and was admitted to be evaluated after the CT showed potential perinephric stranding with potential pyelitis and pyelonephritis. UA had +3 blood with some leukocyte esterase and red blood cells. Cultures are pending. PAST MEDICAL HISTORY: Extensive and includes the followin. Pulmonary hypertension. 2. Cardiomyopathy. 3. Substance abuse. 4. End-stage renal disease. 5. Left transmetatarsal amputation. 6. Hemorrhoidectomy. 7. AV fistula. MEDICATIONS: 1. Atorvastatin. 2. Amlodipine. 3. Clonidine. 4. Renagel. 5. Lasix. 6. Carvedilol. 7. Lisinopril. ALLERGIES: None. SOCIAL HISTORY: Admits to drug abuse. REVIEW OF SYSTEMS: GENERAL: No fever or chills. CARDIOVASCULAR: Significant for shortness of breath, but no chest pain. PULMONARY: No cough or hemoptysis, but significant for shortness of breath. [facility] [address] [place] [address] CONSULTATION Name: YOLANDE LEDBETTER Room #: 456-P [facility]#: [id number] Admission: 01/17/19 Attend Phys: Popeye Veloz MD Discharge: Date of : 74 Report #: [id number] GASTROINTESTINAL: No nausea or vomiting. GENITOURINARY: Dysuria. PHYSICAL EXAMINATION: GENERAL: He is alert, oriented, in no apparent distress. VITAL SIGNS: Blood pressure is 130/82, pulse rate is 60, temperature 36.3. HEAD AND NECK: No jugular venous distention. CHEST: Bilateral crackles. CARDIOVASCULAR: No rub detected. ABDOMEN: Soft, nontender. EXTREMITIES: Lower extremities, no edema. Upper extremities, right AV fistula. LABORATORY VALUES: Reviewed. White blood cell count 5.5. Chemistry from today with a sodium of 136, BUN of 57, creatinine of 7.9. ASSESSMENT/IMPRESSION AND PLAN: 1. End-stage renal disease. 2. Urinary tract infections. 3. Cardiomyopathy. 4. Substance abuse. We will arrange for the patient to have his usual hemodialysis today. Initiated on appropriate antibiotic pending cultures. Continue with the same for now. Counseling about his substance abuse. Resume his outpatient medication. <ELECTRONICALLY SIGNED> By: Christina Gann MD 01/21/19 0741 0726 0753 Christina Gann MD /nt
[2019-01-21 09:49] VITALS: BP 103/61
[2019-01-21] MEDS ORDERED: CIPRO250 M2 PO (14:19)
[2019-01-21 14:47] VITALS: BP 103/61
--- NOTE | 2019-01-21 15:47 | NUR ---
Assumed pt care at 7am.Assessment completed.vss.Pt in bed very anxious about going home today.Am meds given with breakfast and well tolerated.Dr Jackson rounded on pt and said that he will dc pt home later today.Around 1345,pt called out and c/o chest pain.Dr Alva was on the unit and he saw pt and ordered ekg stat and also morphine ivp to be given.Dr Jackson notified and he wanted pt monitor for 2 hours and if stable to dc home this evening.Pt c/o nausea and vomited umeasurable emesis in trash can.Zofran ivp given. Will continue to monitor.
--- NOTE | 2019-01-21 16:08 | NUR ---
CARE TEAM INDICATED THAT PT IS MEDICALLY STABLE TO DC HOME THIS DAY. CM HAD PROVIDED BETTY'S PHONE NUMBER FOR PT TO FOLLOW WITH HIS TESTING LEAD CHINMAY UPON DC. NO OTHER CM INTERVENTION INDICATED. CASE CLOSED.
[2019-01-21 16:51] VITALS: BP 103/61
[2019-01-21 16:59] VITALS: BP 103/61
[2019-01-21 17:47] VITALS: BP 112/68
--- NOTE | 2019-01-22 12:26 | EKG ---
[address] [address] ELECTROCARDIOGRAM REPORT Name: YOLANDE LEDBETTER Room #: 456-[facility] IN M.R.#: [id number] Admission: 01/17/19 Attend Phys: Popeye Veloz MD Discharge: 01/21/19 Date of : 74 Report #: [id number] THIS REPORT FOR: //name// [facility] Test Date: 2019-01-21 Test Time: 13:59:52 Pat Name: YOLANDE LEDBETTER Department: Room: 456 Gender: M Surface Lay Out Technician: Ajay STRAUSS : 1970 Requested By: Popeye Veloz Order Number: [id number] MD: Bertram Benites Measurements Intervals [place] Rate: 53 P: -8 WA: 238 QRS: -38 QRSD: 128 T: 150 QT: 515 QTc: 484 Interpretive Statements Sinus rhythm Prolonged WA interval Probable left atrial enlargement Nonspecific IVCD with LAD LVH with secondary repolarization abnormality Compared to ECG 01/17/2019 19:07:28 Left ventricular hypertrophy now present Early repolarization now present Electronically Signed On 01-22-2019 12:26:04 INDUSTRIAL GAS SERVICER SUPERVISOR by Bertram Benites [email or web address] <ELECTRONICALLY SIGNED> By: Bertram Benites MD 01/22/19 1226 1359 1359 Bertram Benites MD /EPI
== END 2019-01-21 18:30 | disposition home or self-care (01) | DRG 690 ==
LOC: ER 18:49 → 4W 20:55 → EROBS 20:55 → 2N 20:55 → 4W 01-18 19:18 → ENTRNSPT 01-21 17:53 → 4W 01-21 18:30
PROVIDERS: Emergency Medicine; Hospitalist; Nurse Practitioner Family; ADMIT Internal Medicine
DX: N10 Acute pyelonephritis (principal); I42.9 Cardiomyopathy, unspecified; I50.30 Unspecified diastolic (congestive) heart failure; R18.8 Other ascites; E44.0 Moderate protein-calorie malnutrition; I13.2 Hypertensive heart and chronic kidney disease with heart failure and with stage 5 chronic kidney disease, or end stage renal disease; N18.6 End stage renal disease; I27.20 Pulmonary hypertension, unspecified; E78.00 Pure hypercholesterolemia, unspecified; J44.9 Chronic obstructive pulmonary disease, unspecified; F14.10 Cocaine abuse, uncomplicated; R73.9 Hyperglycemia, unspecified; D63.8 Anemia in other chronic diseases classified elsewhere; K21.9 Gastro-esophageal reflux disease without esophagitis; Z89.422 Acquired absence of other left toe(s); Z89.022 Acquired absence of left finger(s); Z87.891 Personal history of nicotine dependence; Z86.14 Personal history of Methicillin resistant Staphylococcus aureus infection; Z71.51 Drug abuse counseling and surveillance of drug abuser; Z68.23 Body mass index [BMI] 23.0-23.9, adult; Z79.82 Long term (current) use of aspirin; Z79.899 Other long term (current) drug therapy
CPT/HCPCS: 10047; 10081; 32100

== ENCOUNTER → 2019-05-11 | Outpatient (CLI) | payer OTHER ==
[~2019-05-11] MED LIST changes: +CIPRO250 M2 PO
== END ==
LOC: SJCVC 14:24
DX: R94.31 Abnormal electrocardiogram [ECG] [EKG] (principal); I42.9 Cardiomyopathy, unspecified; I13.0 Hypertensive heart and chronic kidney disease with heart failure and stage 1 through stage 4 chronic kidney disease, or unspecified chronic kidney disease; I50.20 Unspecified systolic (congestive) heart failure; N18.9 Chronic kidney disease, unspecified; K21.9 Gastro-esophageal reflux disease without esophagitis; Z87.891 Personal history of nicotine dependence; Z72.89 Other problems related to lifestyle; Z79.899 Other long term (current) drug therapy

== ENCOUNTER → 2019-05-19 | Outpatient (CLI) | payer OTHER | LOC: SJCVCIMAG 13:32 | DX: I08.2 Rheumatic disorders of both aortic and tricuspid valves (principal); I50.9 Heart failure, unspecified; I42.9 Cardiomyopathy, unspecified ==

== ENCOUNTER 2020-10-31 01:05 | Inpatient (IN) | payer OTHER ==
[~2020-10-31] VITALS: Ht 167.6 cm; Wt 72.6 kg
[2020-10-31] VITALS (7 sets, daily range): BP systolic 120–148; BP diastolic 75–94
[2020-10-31] MEDS ORDERED: OMEPRAZOLE 20 M20 M1 PO (01:35)
[2020-10-31 02:35] LABS: HEMATOCRIT 23.4 % (42.0-52.0); HEMOGLOBIN 7.9 gm/dL (14.0-18.0); MCH 31.1 pg (26.0-34.0); MCHC 33.6 g/dL (28.0-37.0); MCV 92.4 fL (80.0-100.0); PLATELET COUNT 210 thou/uL (150-400); RBC 2.53 mil/uL (4.50-6.00); RDW 14.4 % (10.5-14.5); WBC 5.1 thou/uL (4.0-11.0)
[2020-10-31 02:42] LABS: CALCIUM 8.8 mg/dL (8.5-10.1); CREATININE 12.4 mg/dL (0.7-1.3); POTASSIUM 4.1 mmol/L (3.5-5.1)
[2020-10-31 02:52] LABS: ALBUMIN 3.3 g/dL (3.4-5.0); TOTAL BILIRUBIN 0.6 mg/dL (0.2-1.0); TOTAL PROTEIN 7.7 g/dL (6.4-8.2); TROPONIN-I 0.15 ng/mL (<0.06)
[2020-10-31 03:18] LABS: ABSOLUTE NEUTROPHILS 3.7 thou/uL (1.4-8.2); ANISOCYTOSIS 1+; PLATELET ESTIMATE NORMAL; POIKILOCYTOSIS 1+
--- NOTE | 2020-10-31 07:27 | EKG ---
[address] [employer] [place] [address] ELECTROCARDIOGRAM REPORT Name: YOLANDE LEDBETTER Room #: 170-11 ADM IN M.R.#: [id number] Admission: 10/31/20 Attend Phys: Qi Walton MD Discharge: Date of : 74 Report #: [id number] [facility] ED Test Date: 2020-10-31 Test Time: 01:08:51 Pat Name: YOLANDE LEDBETTER Department: Room: 170 Gender: M Veneer Glue Jointer Feedback: ANGUS : 1970 Requested By: Shaka Chen Order Number: [id number] MD: Michelet Haddad Measurements Intervals [place] Rate: 79 P: 54 WA: 194 QRS: -30 QRSD: 119 T: 191 QT: 433 QTc: 497 Interpretive Statements Sinus rhythm Ventricular premature complex Left ventricular hypertrophy Abnormal T, consider ischemia, lateral leads Anterior ST elevation, probably due to LVH Compared to ECG 01/21/2019 13:59:52 Ventricular premature complex(es) now present T-wave abnormality now present Possible ischemia now present ST (T wave) deviation now present First degree AV block no longer present Electronically Signed On 10-31-2020 7:27:24 CDT by Michelet Haddad [email or web address] <ELECTRONICALLY SIGNED> By: Michelet Haddad MD, [facility] 10/31/20 0727 7 7 Michelet Haddad MD, [facility] /EPI
[2020-10-31 12:59] LABS: AMP/METHAMP Negative (Negative); BARBITURATES Negative (Negative); BENZODIAZEPINES Negative (Negative); COCAINE POSITIVE (Negative); METHADONE Negative (Negative); OPIATES Negative (Negative); PCP Negative (Negative)
--- NOTE | 2020-10-31 18:24 | NUR ---
PATIENT ADMIT TO UNIT AT 0740. A/O X4. HAD HD TODAY. 2.7L FLUID MOVED. PATIENT ON RA NOW. VSS PROGRESSING TOWARDS POC GOALS.
[2020-11-01 00:20] VITALS: BP 133/91
--- NOTE | 2020-11-01 02:38 | NUR ---
ASSUMED CARE OF PT AT 1900, PT A/O X 4 ON RA. ASSESSMENT COMPLETED NOTED. PT C/O RIGHT HAND CRAMPING RELIEF WITH WARM WATER. WILL CONTINUE TO WORK TOWARDS PT'S POC.
[2020-11-01 04:45] VITALS: BP 132/88
[2020-11-01 08:00] VITALS: BP 138/90
[2020-11-01 10:08] LABS: HEP B SURFACE Ab(ANTI-HBS Reactive (()); HEPATITIS B SURFACE AG Negative (Negative)
[2020-11-01 10:49] LABS: HEMATOCRIT 21.6 % (42.0-52.0); HEMOGLOBIN 7.3 gm/dL (14.0-18.0); MCH 31.6 pg (26.0-34.0); MCHC 33.9 g/dL (28.0-37.0); PLATELET COUNT 139 thou/uL (150-400); RBC 2.32 mil/uL (4.50-6.00); RDW 15.3 % (10.5-14.5); WBC 2.9 thou/uL (4.0-11.0)
[2020-11-01 11:11] LABS: ALBUMIN 2.8 g/dL (3.4-5.0); CALCIUM 8.3 mg/dL (8.5-10.1); MAGNESIUM 2.4 mg/dL (1.8-2.4); PHOSPHORUS 3.7 mg/dL (2.5-4.9); POTASSIUM 3.7 mmol/L (3.5-5.1)
[2020-11-01 11:15] LABS: CREATININE 8.7 mg/dL (0.7-1.3)
[2020-11-01 11:42] LABS: ABSOLUTE NEUTROPHILS 2.1 thou/uL (1.4-8.2)
[2020-11-01 11:43] LABS: PLATELET ESTIMATE NORMAL
[2020-11-01 12:00] VITALS: BP 135/88
--- NOTE | 2020-11-01 16:46 | NUR ---
ASSUMED PATIENT CARE AT 0700. A/O X4. C/O LEG CRAMPS AFTER HD. 800ML FLUID MOVED. TOLERATED HD WELL. VSS. SLOWLY TOWARDS POC GOALS.
[2020-11-01 20:21] VITALS: BP 138/77
[2020-11-02 05:31] VITALS: BP 135/76
--- NOTE | 2020-11-02 07:47 | NUR ---
ASSUME CARE 1900. PT/VITALS STABLE. DENIES ANY PAIN. TOLERATES ACTIVITY WELL. NO DISCTRESS NOTED THROUGH THE NIGHT. ADEQUATE REST/ SR ON MONITOR. PROGRESSING WELL WITH POC. PLAN IS POSSIBLE DISCHARGE TODAY. WILL CONTINUE TO MONITOR AND FOLLOW WITH POC
[2020-11-02 09:22] VITALS: BP 143/95
[2020-11-02] MEDS ORDERED: VENTOLIN HFA 1818 GM INH (11:03)
[2020-11-02 11:22] VITALS: BP 124/71
[2020-11-02 11:59] VITALS: BP 124/71
--- NOTE | 2020-11-02 12:10 | NUR ---
Pt dcing home today. He indicates that he has a ride home. He plans to followup with his usually dialysis clinic at [facility]. He missed several treatments last week and is a known substance abuser. He is also known to miss dialysis treatments pending how he is feeling. The pt is on disablity and has health ins for f/u care and meds. He is up ad patience in his room. He denies any dc planning needs or concerns about his f/u care. [facility] notified of dc and message left for resumption of care tomorrow. Fax number requested for flow sheets and summary to be sent to them.
--- NOTE | 2020-11-02 12:37 | NUR ---
FAXED DISCHARGE ORDERS, SUMMARY, DIALYSYS FLOW SHEETS AND NEGATVIE COVID RESULT (10/31/20) TO [facility]. NOTED AND LEFT VOICE MESSAGE TO RESUME PATIENT'S NORMAL OUTPATIENT DIALYSIS SCHEDULE TOMORROW, 11/03/20. [facility] P [phone]; FAX [phone]; [facility] [phone]
--- NOTE | 2020-11-02 12:46 | NUR ---
PROGRESSING TOWARDS POC GOALS. DC TO HOME NOW.
== END 2020-11-02 13:45 | disposition home or self-care (01) | DRG 193 ==
LOC: ER 01:05 → EROBS 03:02 → 2N 03:02
PROVIDERS: Emergency Medicine; Internal Medicine Nephrology; Nurse Practitioner; ADMIT Hospitalist; ATTEND Hospitalist
PROC: 5A1D70Z Performance of Urinary Filtration, Intermittent, Less than 6 Hours Per Day (ICD-10-PCS; principal; 2020-10-31)
PROC: 5A1D70Z Performance of Urinary Filtration, Intermittent, Less than 6 Hours Per Day (ICD-10-PCS; 2020-11-01)
DX: J18.9 Pneumonia, unspecified organism (principal); J96.01 Acute respiratory failure with hypoxia; N18.6 End stage renal disease; I13.2 Hypertensive heart and chronic kidney disease with heart failure and with stage 5 chronic kidney disease, or end stage renal disease; I42.9 Cardiomyopathy, unspecified; I50.20 Unspecified systolic (congestive) heart failure; J44.0 Chronic obstructive pulmonary disease with (acute) lower respiratory infection; R77.8 Other specified abnormalities of plasma proteins; Z20.822 Contact with and (suspected) exposure to COVID-19; I27.20 Pulmonary hypertension, unspecified; E78.00 Pure hypercholesterolemia, unspecified; K21.9 Gastro-esophageal reflux disease without esophagitis; F17.210 Nicotine dependence, cigarettes, uncomplicated; E87.70 Fluid overload, unspecified; L29.9 Pruritus, unspecified; I73.9 Peripheral vascular disease, unspecified; D63.8 Anemia in other chronic diseases classified elsewhere; F14.10 Cocaine abuse, uncomplicated; F15.10 Other stimulant abuse, uncomplicated; F19.10 Other psychoactive substance abuse, uncomplicated; Z71.51 Drug abuse counseling and surveillance of drug abuser
CPT/HCPCS: 10081; 32100

== ENCOUNTER 2021-02-22 11:04 | Inpatient (IN) | payer OTHER ==
[~2021-02-22] VITALS: Ht 167.6 cm; Wt 70.3 kg
[~2021-02-22 11:04] MED LIST changes: +OMEPRAZOLE 20 M20 M1 PO; +VENTOLIN HFA 1818 GM INH
[2021-02-22 11:07] VITALS: BP 126/77
[2021-02-22 12:40] LABS: HEMOGLOBIN 9.9 gm/dL (14.0-18.0); MCH 29.7 pg (26.0-34.0); MCHC 32.9 g/dL (28.0-37.0); MCV 90.4 fL (80.0-100.0); RBC 3.32 mil/uL (4.50-6.00); RDW 16.9 % (10.5-14.5); WBC 3.9 thou/uL (4.0-11.0)
[2021-02-22 12:58] LABS: CALCIUM 8.5 mg/dL (8.5-10.1); CREATININE 19.5 mg/dL (0.7-1.3); POTASSIUM 4.2 mmol/L (3.5-5.1)
[2021-02-22 13:00] LABS: ALBUMIN 3.3 g/dL (3.4-5.0); TOTAL BILIRUBIN 0.4 mg/dL (0.2-1.0); TOTAL PROTEIN 7.2 g/dL (6.4-8.2)
[2021-02-23 02:47] LABS: CALCIUM 8.4 mg/dL (8.5-10.1); POTASSIUM 3.4 mmol/L (3.5-5.1)
[2021-02-23 02:52] LABS: ALBUMIN 2.8 g/dL (3.4-5.0)
[2021-02-23 02:56] LABS: CREATININE 10.4 mg/dL (0.7-1.3)
--- NOTE | 2021-02-23 07:41 | EKG ---
[address] [place] [address] ELECTROCARDIOGRAM REPORT Name: YOLANDE LEDBETTER Room #: 170-1 ADM IN M.R.#: [id number] Admission: 02/22/21 Attend Phys: Francesca Thompson Discharge: Date of : 74 Report #: [id number] [facility] ED Test Date: 2021-02-22 Test Time: 13:55:49 Pat Name: YOLANDE LEDBETTER Department: Room: 170 Gender: M Library Customer Service Clerk: MATHEW : 1970 Requested By: Monie Lindsey Order Number: [id number] MD: Michelet Haddad Measurements Intervals [place] Rate: 64 P: 84 NH: 215 QRS: -10 QRSD: 127 T: 57 QT: 475 QTc: 490 Interpretive Statements Sinus rhythm Ventricular premature complex Consider left atrial enlargement Nonspecific intraventricular conduction delay Abnormal lateral Q waves Compared to ECG 10/31/2020 01:08:51 First degree AV block now present Intraventricular conduction delay now present Q waves now present Left ventricular hypertrophy no longer present ST (T wave) deviation no longer present Electronically Signed On 02-23-2021 7:40:36 CLOAK ROOM ATTENDANT by Michelet Haddad [email or web address] <ELECTRONICALLY SIGNED> By: Michelet Haddad MD, FACC 02/23/21 0740 1355 1355 Mcihelet Haddad MD, FACC /EPI
--- NOTE | 2021-02-23 13:08 | NUR ---
DIALYSIS AT BEDSIDE
[2021-02-23 16:55] VITALS: BP 130/79
[2021-02-23 16:56] VITALS: BP 125/70
== END 2021-02-23 17:20 | disposition home or self-care (01) | DRG 640 ==
LOC: ER 11:04 → EROBS 14:33
PROVIDERS: Nurse Practitioner Family; ADMIT Hospitalist; ATTEND Hospitalist
PROC: 5A1D70Z Performance of Urinary Filtration, Intermittent, Less than 6 Hours Per Day (ICD-10-PCS; principal; 2021-02-23)
DX: E87.70 Fluid overload, unspecified (principal); N18.6 End stage renal disease; I42.9 Cardiomyopathy, unspecified; I13.2 Hypertensive heart and chronic kidney disease with heart failure and with stage 5 chronic kidney disease, or end stage renal disease; K21.9 Gastro-esophageal reflux disease without esophagitis; I27.20 Pulmonary hypertension, unspecified; E78.00 Pure hypercholesterolemia, unspecified; I50.9 Heart failure, unspecified; J44.9 Chronic obstructive pulmonary disease, unspecified; Z20.822 Contact with and (suspected) exposure to COVID-19; D63.8 Anemia in other chronic diseases classified elsewhere; Z91.19 Patient's noncompliance with other medical treatment and regimen; Z79.899 Other long term (current) drug therapy; Z89.422 Acquired absence of other left toe(s); Z87.891 Personal history of nicotine dependence; Z49.01 Encounter for fitting and adjustment of extracorporeal dialysis catheter
CPT/HCPCS: 32100

== ENCOUNTER 2021-03-10 15:51 | Inpatient (IN) | payer OTHER ==
[~2021-03-10] VITALS: Ht 167.6 cm; Wt 69.9 kg
[2021-03-10 15:54] VITALS: BP 157/93
[2021-03-10 17:00] LABS: ABSOLUTE NEUTROPHILS 3.5 thou/uL (1.4-8.2); BASOPHILS 0.7 % (0.0-2.0); CALCIUM 9.1 mg/dL (8.5-10.1); CREATININE 11.7 mg/dL (0.7-1.3); EOSINOPHILS 1.1 % (0.0-3.0); HEMATOCRIT 33.5 % (42.0-52.0); HEMOGLOBIN 10.9 gm/dL (14.0-18.0); LYMPHOCYTES 9.5 % (24.0-44.0); MCH 29.4 pg (26.0-34.0); MCHC 32.6 g/dL (28.0-37.0); MCV 90.1 fL (80.0-100.0); MONOCYTES 6.2 % (1.0-8.0); PLATELET COUNT 195 thou/uL (150-400); POLYS 82.5 % (36.0-66.0); POTASSIUM 4.4 mmol/L (3.5-5.1); RBC 3.72 mil/uL (4.50-6.00); RDW 16.9 % (10.5-14.5); WBC 4.3 thou/uL (4.0-11.0)
[2021-03-10 17:10] LABS: ALBUMIN 3.8 g/dL (3.4-5.0); TOTAL BILIRUBIN 0.9 mg/dL (0.2-1.0); TOTAL PROTEIN 8.1 g/dL (6.4-8.2)
[2021-03-10 18:29] LABS: URINE BILIRUBIN NEGATIVE (Negative); URINE BLOOD 1+ (Negative); URINE CLARITY CLEAR; URINE COLOR YELLOW; URINE GLUCOSE-RANDOM* NEGATIVE (Negative); URINE KETONES NEGATIVE (Negative); URINE LEUKOCYTES-REFLEX NEGATIVE (Negative); URINE NITRITE-REFLEX NEGATIVE (Negative); URINE PROTEIN (DIPSTICK) 2+ (Negative); URINE UROBILINOGEN 0.2 E.U./dl (0.2-1.0)
[2021-03-10 18:37] LABS: BACTERIA-REFLEX 1-9 Few /HPF (None Seen); CASTS None Seen /LPF (None Seen); CRYSTALS None Seen /LPF (None Seen); SQUAMOUS 0-3 Few /LPF (0-3); URINE RBC 3-10 Few /HPF (NONE SEEN); URINE WBC-REFLEX None Seen /HPF (0-5)
[2021-03-10 20:10] VITALS: BP 187/112
[2021-03-11 06:23] LABS: AMP/METHAMP Negative (Negative); BARBITURATES Negative (Negative); BENZODIAZEPINES Negative (Negative); COCAINE POSITIVE (Negative); METHADONE Negative (Negative); OPIATES Negative (Negative); PCP Negative (Negative)
[2021-03-11 08:25] VITALS: BP 170/111
[2021-03-11 15:01] VITALS: BP 167/102
[2021-03-11 15:07] VITALS: BP 151/113
--- NOTE | 2021-03-11 18:47 | NUR ---
PATIENT ARRIVED TO THE UNIT AT 1500. AMBULATED TO THE BED FROM A WHEELCHAIR, STEADY. DENIES PAIN, CP OR SOA. NO COUGHING. IV ABX. PAPERWORK SIGNED. ADMISSION ASSESSMENT COMPLETED. ADMIT TELE STRIP PRINTED. PATIENT COMPLIANT WITH MEDS AND POC. WILL CONTINUE TO MONITOR.
[2021-03-11 20:00] VITALS: BP 164/87
--- NOTE | 2021-03-12 03:13 | NUR ---
PATIENT RESTING IN HIS ROOM WATCHING TV. PT STATES THAT HE HAS BEEN SHORT OF BREATH BUT IS FEELING BETTER AFTER STEROIDS AND ANTIBIOTICS. HE IS AAOX3 AND FOLLOWS ALL COMMANDS. VSS. DENIES ANY PAIN. HIS APPETITES IS GOOD. R FISTULA SITE NOTED. PT TO HAVE DIALYSIS IN THE AM. NO S/S OF DISTRESS NOTED. WILL CONTINUE TO MONITOR.
[2021-03-12 03:30] VITALS: BP 157/83
[2021-03-12 04:33] VITALS: BP 157/93
[2021-03-12 05:19] LABS: ABSOLUTE NEUTROPHILS 4.2 thou/uL (1.4-8.2); BASOPHILS 0.1 % (0.0-2.0); HEMATOCRIT 30.6 % (42.0-52.0); LYMPHOCYTES 3.3 % (24.0-44.0); MCH 29.7 pg (26.0-34.0); MCHC 32.8 g/dL (28.0-37.0); MCV 90.5 fL (80.0-100.0); MONOCYTES 1.6 % (1.0-8.0); PLATELET COUNT 176 thou/uL (150-400); RBC 3.39 mil/uL (4.50-6.00); RDW 17.1 % (10.5-14.5); WBC 4.5 thou/uL (4.0-11.0)
[2021-03-12 05:31] LABS: CALCIUM 9.3 mg/dL (8.5-10.1); MAGNESIUM 2.2 mg/dL (1.8-2.4); POTASSIUM 4.5 mmol/L (3.5-5.1)
[2021-03-12 05:45] LABS: CREATININE 13.6 mg/dL (0.7-1.3)
--- NOTE | 2021-03-12 07:20 | EKG ---
[address] [place] [address] ELECTROCARDIOGRAM REPORT Name: YOLANDE LEDBTETER Room #: 200-I ADM IN M.R.#: [id number] Admission: 03/10/21 Attend Phys: Paul Atwood MD Discharge: Date of : 74 Report #: [id number] [facility] ED Test Date: 2021-03-10 Test Time: 16:08:28 Pat Name: YOLANDE LEDBETTER Department: Room: 200 Gender: M French Lecturer: RHINA : 1970 Requested By: Denise Ferraro Order Number: [id number] MD: Michelet Haddad Measurements Intervals [place] Rate: 78 P: 41 HI: 191 QRS: -38 QRSD: 128 T: 143 QT: 440 QTc: 502 Interpretive Statements Sinus rhythm Multiform ventricular premature complexes Probable left atrial enlargement Nonspecific IVCD with LAD LVH with secondary repolarization abnormality Compared to ECG 02/22/2021 13:55:49 Left ventricular hypertrophy now present Early repolarization now present Q waves no longer present Electronically Signed On 03-12-2021 7:19:45 MARKET SURVEY REPRESENTATIVE by Michelet Haddad [email or web address] <ELECTRONICALLY SIGNED> By: Michelet Haddad MD, FACC 03/12/21 0719 1608 1608 Michelet Haddad MD, [facility] /EPI
[2021-03-12 08:10] VITALS: BP 176/117
[2021-03-12 11:07] VITALS: BP 174/103
--- NOTE | 2021-03-12 14:57 | NUR ---
PATIENT ADMITTED WITH PNA. CHART REVIEWED AND CASE DISCUSSED WITH CARE TEAM. CM MET WITH PT THIS DAY. CM ROLE INTRODUCED. PATIENT REPORTS HE LIVES IN AN APARTMENT BY HIMSELF. HE IS INDEPENDENT WITH ALL ADLS AND MOBILITY. DOES NOT USE ANY ASSISSTIVE DEVICE. HE REPORT NOT HAVING HH OR OTHER THERAPY SERVICES IN THE PAST. HE GOES TO [facility] . UPDATES SENT. PT REPORTS HE PLANS TO GO BACK HOME ONCE MEDICALLY STABLE WITH NO NEEDS. NO CM INTERVENTIONS INDICATED AT THIS TIME. CM FOLLOWING.
[2021-03-12 15:23] VITALS: BP 146/84
[2021-03-12 20:15] VITALS: BP 144/90
[2021-03-13 04:44] VITALS: BP 164/95
--- NOTE | 2021-03-13 06:02 | NUR ---
alert and oriented. Pleasant, Up ad patience in room.Denies SOA or cough. Remains on room air. NO pain. REports voiding some at noc. SR/SB on telemetry.Plan to d/c today.
[2021-03-13 09:29] VITALS: BP 155/96
[2021-03-13 11:28] VITALS: BP 155/96
[2021-03-13] MEDS ORDERED: PREDNISONE 10 M10 M1 PO (13:06)
[2021-03-13] MEDS ORDERED: CEFDINIR300 MG PO (13:09)
--- NOTE | 2021-03-13 13:18 | NUR ---
PT WILL DC HOME THIS DAY WITH NO HOME NEEDS. FAXED DC ORDERS AND SUMMARY TO CHANDAN AT [facility]. CALL PLACED TO [facility]. UNABLE TO REACH ANYONE. CM LEFT MESSAGE.
--- NOTE | 2021-03-13 13:53 | NUR ---
PATIENT DISCHARGED HOME. TELE AND IV REMOVED. NO QUESTIONS ABOUT HOME PERSCRIPTIONS.
[2021-03-13 13:54] VITALS: BP 155/96
== END 2021-03-13 13:55 | disposition home or self-care (01) | DRG 193 ==
LOC: ER 15:51 → 2N 17:46 → EROBS 17:46 → 2N 03-11 14:45
PROVIDERS: Nurse Practitioner; Physician Assistant; ADMIT Internal Medicine; ATTEND Internal Medicine
DX: J18.9 Pneumonia, unspecified organism (principal); N18.6 End stage renal disease; J96.01 Acute respiratory failure with hypoxia; A41.9 Sepsis, unspecified organism; I42.9 Cardiomyopathy, unspecified; J44.0 Chronic obstructive pulmonary disease with (acute) lower respiratory infection; I13.2 Hypertensive heart and chronic kidney disease with heart failure and with stage 5 chronic kidney disease, or end stage renal disease; I27.20 Pulmonary hypertension, unspecified; E78.00 Pure hypercholesterolemia, unspecified; K21.9 Gastro-esophageal reflux disease without esophagitis; I50.9 Heart failure, unspecified; F12.90 Cannabis use, unspecified, uncomplicated; F17.210 Nicotine dependence, cigarettes, uncomplicated; D63.8 Anemia in other chronic diseases classified elsewhere; E78.5 Hyperlipidemia, unspecified; F14.10 Cocaine abuse, uncomplicated; E87.70 Fluid overload, unspecified; F19.10 Other psychoactive substance abuse, uncomplicated; Z20.822 Contact with and (suspected) exposure to COVID-19; Z89.112 Acquired absence of left hand; Z79.899 Other long term (current) drug therapy
CPT/HCPCS: 10081; 32100

== ENCOUNTER 2021-03-18 23:08 | Emergency (ER) | payer OTHER ==
[~2021-03-18] VITALS: Ht 167.6 cm; Wt 69.4 kg
[~2021-03-18 23:08] MED LIST changes: +CEFDINIR300 MG PO; +PREDNISONE 10 M10 M1 PO
[2021-03-18 23:45] LABS: HEMOGLOBIN 10.6 gm/dL (14.0-18.0); MCH 29.3 pg (26.0-34.0); MCHC 32.1 g/dL (28.0-37.0); MCV 91.4 fL (80.0-100.0); PLATELET COUNT 221 thou/uL (150-400); RBC 3.61 mil/uL (4.50-6.00); RDW 18.2 % (10.5-14.5); WBC 5.1 thou/uL (4.0-11.0)
[2021-03-18 23:46] LABS: CALCIUM 8.6 mg/dL (8.5-10.1); CREATININE 12.4 mg/dL (0.7-1.3)
[2021-03-18 23:48] LABS: POTASSIUM 5.8 mmol/L (3.5-5.1)
[2021-03-19 00:38] LABS: ABSOLUTE NEUTROPHILS 3.8 thou/uL (1.4-8.2); ANISOCYTOSIS 2+
[2021-03-19 00:39] LABS: BURR CELLS OCCASIONAL; OVALOCYTES FEW; POIKILOCYTOSIS SLIGHT
[2021-03-19] MEDS ORDERED: PERCOCET 5-3251 EACH PO (04:18)
[2021-03-19 04:39] VITALS: BP 144/103
--- NOTE | 2021-03-19 07:52 | EKG ---
[place] [address] [address] [facility] [place] [address] ELECTROCARDIOGRAM REPORT Name: YOLANDE LEDBETTER Room #: DEP [facility]#: [id number] Admission: 03/18/21 Attend Phys: Discharge: 03/19/21 Date of : 74 Report #: [id number] [facility] ED Test Date: 2021-03-18 Test Time: 23:15:50 Pat Name: YOLANDE LEDBETTER Department: Room: Gender: M Radiographic Technologist: : 1970 Requested By: Rajesh Epstein Order Number: [id number] MD: Александр Ochoa Measurements Intervals [place] Rate: 96 P: 41 FL: 183 QRS: -41 QRSD: 117 T: 92 QT: 369 QTc: 467 Interpretive Statements Sinus rhythm Left atrial enlargement Left anterior fascicular block Left ventricular hypertrophy with repolarization abnormality Lateral PR, age indeterminate Compared to ECG 03/10/2021 16:08:28 Ventricular premature complex(es) no longer present Atrial premature complexes no longer present Electronically Signed On 03-19-2021 7:52:41 ELECTRONICS UTILITY WORKER by Александр Ochoa [email or web address] <ELECTRONICALLY SIGNED> By: Александр Ochoa MD, [facility] 03/19/21 0752 2315 2315 Александр Ochoa MD, [facility] /EPI
== END 2021-03-19 04:52 | disposition home or self-care (01) ==
LOC: ER 23:08
PROVIDERS: Student in an Organized Health Care Education/Training Program
DX: R07.89 Other chest pain (principal); E78.00 Pure hypercholesterolemia, unspecified; K21.9 Gastro-esophageal reflux disease without esophagitis; I13.2 Hypertensive heart and chronic kidney disease with heart failure and with stage 5 chronic kidney disease, or end stage renal disease; N18.6 End stage renal disease; Z79.899 Other long term (current) drug therapy; Z87.891 Personal history of nicotine dependence

== ENCOUNTER 2021-04-18 19:02 | Emergency (ER) | payer OTHER ==
[~2021-04-18] VITALS: Ht 172.7 cm; Wt 88.9 kg
[~2021-04-18 19:02] MED LIST changes: +PERCOCET 5-3251 EACH PO
[2021-04-18 20:07] LABS: HEMATOCRIT 36.6 % (42.0-52.0); HEMOGLOBIN 11.8 gm/dL (14.0-18.0); MCHC 32.3 g/dL (28.0-37.0); MCV 92.7 fL (80.0-100.0); PLATELET COUNT 132 thou/uL (150-400); RBC 3.95 mil/uL (4.50-6.00); RDW 19.7 % (10.5-14.5); WBC 2.9 thou/uL (4.0-11.0)
[2021-04-18 20:18] LABS: CALCIUM 8.8 mg/dL (8.5-10.1); CREATININE 11.2 mg/dL (0.7-1.3); POTASSIUM 5.8 mmol/L (3.5-5.1)
[2021-04-18 21:08] LABS: ABSOLUTE NEUTROPHILS 1.7 thou/uL (1.4-8.2); ANISOCYTOSIS 2+; BURR CELLS 1+; LARGE PLATELETS FEW; PLATELET ESTIMATE DECREASED; POIKILOCYTOSIS 1+; SCHISTOCYTES 1+
[2021-04-18 22:02] VITALS: BP 138/50
--- NOTE | 2021-04-19 08:00 | EKG ---
[place] [address] [facility] [place] [address] ELECTROCARDIOGRAM REPORT Name: YOLANDE LEDBETTER [id number] Admission: 04/18/21 Attend Phys: Discharge: 04/18/21 Date of : 74 Report #: [id number] [facility] ED Test Date: 2021-04-18 Test Time: 19:25:24 Pat Name: YOLANDE LEDBETTER Department: Room: Gender: Manufacturing Technologist: óscar : 1970 Requested By: Karen Cummings Order Number: [id number] MD: Michelet Haddad Measurements Intervals [place] Rate: 63 P: 28 VA: 213 QRS: -31 QRSD: 122 T: 113 QT: 464 QTc: 476 Interpretive Statements Sinus rhythm Prolonged VA interval Probable left atrial enlargement LVH with secondary repolarization abnormality Baseline wander in lead(s) I,II,aVR,aVF Compared to ECG 03/18/2021 23:15:50 First degree AV block now present Left anterior fascicular block no longer present Electronically Signed On 04-19-2021 8:00:00 NET WEB APPLICATION DEVELOPER by Michelet Haddad [email or web address] <ELECTRONICALLY SIGNED> By: Michelet Haddad MD, [facility] 04/19/21799 24 24 Michelet Haddad MD, [facility] /EPI
== END 2021-04-18 22:07 | disposition home or self-care (01) ==
LOC: ER 19:02
PROVIDERS: Student in an Organized Health Care Education/Training Program
DX: K59.00 Constipation, unspecified (principal); I13.2 Hypertensive heart and chronic kidney disease with heart failure and with stage 5 chronic kidney disease, or end stage renal disease; I50.9 Heart failure, unspecified; N18.6 End stage renal disease; I42.9 Cardiomyopathy, unspecified; F14.10 Cocaine abuse, uncomplicated; K21.9 Gastro-esophageal reflux disease without esophagitis; Z99.2 Dependence on renal dialysis; Z91.15 Patient's noncompliance with renal dialysis; J44.9 Chronic obstructive pulmonary disease, unspecified; Z98.890 Other specified postprocedural states; Z79.51 Long term (current) use of inhaled steroids; Z79.891 Long term (current) use of opiate analgesic; Z79.899 Other long term (current) drug therapy; Z87.891 Personal history of nicotine dependence